=== PATIENT | male | born 1950 | race Caucasian/White ===

== ENCOUNTER 2024-03-06 22:03 | Inpatient (IN) | payer MEDICARE, SELFPAY ==
[2024-03-06] VITALS (9 sets, daily range): BP systolic 105–136; BP diastolic 33–97; PULSE 61–112; RESP 18–34; TEMP 34.4–35.4; O2SAT 71–80; BMI 14.1; BMI 21.2
--- NOTE | 2024-03-06 22:13 | ECG_ITS ---
APPROVED REPORT Exam: Resting ECG HR:111 bpm ECG Measurements Heart Rate 111 AXES QRSd 104 QRS 72 QT 350 T 199 QTc 416 Conclusion ATRIAL FIBRILLATION WITH RAPID VENTRICULAR RESPONSE ST DEVIATION AND MODERATE T-WAVE ABNORMALITY, CONSIDER ANTEROLATERAL ISCHEMIA [-0.1+ mV T-WAVE IN V3-V6] ST DEVIATION AND MODERATE T-WAVE ABNORMALITY, CONSIDER INFERIOR ISCHEMIA [-0.1+ mV T-WAVE IN II/aVF] No STEMI Electronically signed by : EUGENIO NEWBY, 03/07/2024 04:27:00
--- NOTE | 2024-03-06 22:15 | CT_ITS ---
PROCEDURE INFORMATION: Exam: CT Abdomen And Pelvis With Contrast Exam date and time: 03/06/2024 11:55 PM Age: 73 years old Clinical indication: Other: Cachexia; Additional info: Severe decline, cachexia, TECHNIQUE: Imaging protocol: Computed tomography of the abdomen and pelvis with contrast. Radiation optimization: All CT scans at this facility use at least one of these dose optimization techniques: automated exposure control; mA and/or kV adjustment per patient size (includes targeted exams where dose is matched to clinical indication); or iterative reconstruction. Contrast material: ISOVUE; Contrast volume: 75 ml; Contrast route: IV; COMPARISON: CT CHEST W CON 03/06/2024 11:55 PM FINDINGS: Liver: Normal. No mass. Gallbladder and biliary ducts: Distended gallbladder without gallstone or wall thickening. Pancreas: Normal. No ductal dilation. Spleen: Normal. No splenomegaly. Adrenal glands: Normal. No mass. Kidneys and ureters: Bilateral renal cysts measuring up to 8.1 cm. Nonobstructive 0.6 cm right renal calculus. Stomach and bowel: Unremarkable. No obstruction. No mucosal thickening. Appendix: Not visualized. Intraperitoneal space: Unremarkable. No free air. No significant fluid collection. Vasculature: Atherosclerotic calcification of aortoiliac arteries without aneurysm. Lymph nodes: Unremarkable. No enlarged lymph nodes. Urinary bladder: Partially decompressed urinary bladder with catheterization. Reproductive: Unremarkable as visualized. Bones/joints: Unremarkable. No acute fracture. Soft tissues: Unremarkable. IMPRESSION: 1. No acute intra abdominopelvic findings. 2. Distended gallbladder without gallstone or wall thickening possibly reflecting cholestasis. 3. Nonobstructive right renal calculus. COMMENTS: Consistent with the [employer]'s Incidental Findings Committee white paper (J Am Karey Radiol 2018): Any incidental renal lesion less than 1 cm or classified as too small to characterize, or any incidental cystic renal lesion characterized as simple-appearing, is likely benign. No follow-up imaging is recommended for these lesions per consensus recommendations based on imaging criteria.
--- NOTE | 2024-03-06 22:15 | CT_ITS ---
PROCEDURE INFORMATION: Exam: CT Head Without Contrast Exam date and time: 03/06/2024 11:53 PM Age: 73 years old Clinical indication: Altered mental status/memory loss; Additional info: AMS found down TECHNIQUE: Imaging protocol: Computed tomography of the head without contrast. Total images: 672 Radiation optimization: All CT scans at this facility use at least one of these dose optimization techniques: automated exposure control; mA and/or kV adjustment per patient size (includes targeted exams where dose is matched to clinical indication); or iterative reconstruction. COMPARISON: No relevant prior studies available. FINDINGS: Brain: No acute intracranial hemorrhage, midline shift, or mass. Moderate cortical and cerebellar atrophy. Hensley-white interface and basilar cisterns are preserved. Mild white matter heterogeneity compatible with remote small vessel ischemic changes. Cerebral ventricles: Mild ventricular prominence compatible degree of central atrophy. Paranasal sinuses: Visualized sinuses are unremarkable. No fluid levels. Mastoid air cells: Visualized mastoid air cells are well aerated. Bones: Unremarkable. No acute fracture. Soft tissues: Unremarkable. Vasculature: Mild calcifications bilateral intracranial internal carotid arteries. Other findings: Limited by motion and attenuation artifacts. IMPRESSION: 1. No acute intracranial process. 2. Chronic findings.
--- NOTE | 2024-03-06 22:15 | CT_ITS ---
PROCEDURE INFORMATION: Exam: CT Chest With Contrast; Diagnostic Exam date and time: 03/06/2024 11:55 PM Age: 73 years old Clinical indication: Shortness of breath; Additional info: Physical decline, cachexia, no R sided breath soun TECHNIQUE: Imaging protocol: Diagnostic computed tomography of the chest with contrast. Radiation optimization: All CT scans at this facility use at least one of these dose optimization techniques: automated exposure control; mA and/or kV adjustment per patient size (includes targeted exams where dose is matched to clinical indication); or iterative reconstruction. Contrast material: ISOVUE; Contrast volume: 75 ml; Contrast route: IV; COMPARISON: CT CHEST W CON 03/06/2024 11:55 PM FINDINGS: Lungs: Extensive patchy opacities in right upper and lower lobes with dense consolidation of right posterobasilar lobe. Patchy nodular opacities in left lower lobe. 1.9 x 2.1 cm right upper lobe partially cavitary lesion with spiculated border (series 5, image 36). Incidental benign left upper lobar calcified granuloma. Underlying centrilobular emphysematous and bronchiectatic changes. Pleural spaces: Unremarkable. No pneumothorax. No pleural effusion. Heart: Unremarkable. No cardiomegaly. No pericardial effusion. Lymph nodes: Unremarkable. No enlarged lymph nodes. Vasculature: Atherosclerotic calcification of thoracic aorta without aneurysm or dissection. Bones/joints: Unremarkable. No acute fracture. Soft tissues: Unremarkable. IMPRESSION: 1. Likely infectious/inflammatory infiltration and consolidation of both lungs most pronounced in right lower lobe. Recommend follow-up to document resolution on treatment. 2. Poorly defined partially cavitary lesion in right upper lobe with spiculated border. Although likely infectious/inflammatory as well, cannot exclude cavitary mass. Recommend follow-up. COMMENTS: The presence of pulmonary emphysema on CT is an independent risk factor for lung cancer. In the absence of a history or active diagnosis of lung cancer, it is recommended that this patient with emphysema be evaluated for enrollment in a low dose CT lung cancer screening program.
--- NOTE | 2024-03-06 22:16 | XR_ITS ---
PROCEDURE INFORMATION: Exam: XR Chest Exam date and time: 03/06/2024 10:15 PM Age: 73 years old Clinical indication: Other: Sepsis TECHNIQUE: Imaging protocol: Radiologic exam of the chest. Views: 1 view. Total images: 2 COMPARISON: No relevant prior studies available. FINDINGS: Tubes, catheters and devices: EKG leads and extrinsic cardiac pacer pads. Lungs: Considerable airspace opacification throughout the right lung. Volume loss in the right hemithorax. The left lung appears clear. No pulmonary vascular congestion. Pleural spaces: Small right pleural effusion. No pneumothorax. Heart/Mediastinum: Right paratracheal fullness. Bones/joints: Unremarkable. Other findings: Rotation to the right limits evaluation. IMPRESSION: 1. Considerable airspace opacification throughout the right hemithorax likely reflecting pneumonia. 2. Small right pleural effusion. 3. Right paratracheal opacity concerning for mediastinal adenopathy.
[2024-03-06 22:23] LABS: VBG Base Excess -9.6 mmol/L (-2.4-2.3); VBG HCO3 18.9 mmol/L (23-30); VBG Oxygen Saturation 41.8 % (50-70); VBG PCO2 52.7 mmol/L (35-51); VBG PO2 30.5 mmol/L (28-40); VBG Total CO2 20.5 mmol/L (23-27)
[2024-03-06 22:27] LABS: Microscopic, Urine URINE MICROSCOPIC (MICROSCOPIC)
[2024-03-06 22:30] LABS: Appearance,Urine CLEAR (Clear); Blood, Urine Negative (Negative); Glucose,Urine (UA) Negative (Negative); Ketones,Urine Negative (Negative); Leukocyte Esterase,Urine Negative (Negative); Nitrate,Urine Negative (Negative); Protein,Urine 1+ (Negative); Specific Gravity, Urine >= 1.030 (1.005-1.030); Urobilinogen,Urine 0.2 EU/dl (0.2)
--- NOTE | 2024-03-06 22:32 | [facility].EDGENADL ---
Discharge Plan Disposition Patient Disposition: Admitted Clinical Impressions Clinical Impression: Acute hypoxemic respiratory failure, JULIA (acute kidney injury), Malnutrition, Declining functional status, Sepsis, Pneumonia, Cavitating mass of lung, Acidosis, metabolic, with respiratory acidosis Discharge ED Provider: Mehul Lutz General Adult HPI <Mehul Lutz MD - Last Filed: 03/06/24 23:10> General Chief complaint: Shortness of Breath/Dyspnea Stated complaint: Refused care for past several months Time Seen by Provider: 03/06/24 22:15 History of Present Illness HPI narrative: Please note that above description of symptoms, in this electronic medical record under categorization of recalled from ER triage doctor by RN are reflective of an initial nursing assessment, however, is not reflective of my full history and physical exam that was personally taken and clarified. Consequentially, this preceding description of symptoms, which may include the patient's categorized chief complaint in the EMR, do not reflect my personal clinical impression, and the ultimate description of history of present illness and patient stated complaints should be deferred to this section of the note. Unless stated otherwise or congruent with this section of the note, additional signs, symptoms, or incongruence should be interpreted as inaccurate with my clinical impression. Related Data Allergies Allergy/AdvReac Type Severity Reaction Status Date / Time No Known Allergies Allergy Verified 03/06/24 22:55 PFSH <Mehul Lutz MD - Last Filed: 03/06/24 23:10> PFS Disclaimer: The information contained in this section may have been updated after the patient was seen, as this information can be updated by other users. Social History (Updated 03/06/24 @ 23:10 by Mehul Lutz MD) Smoking Status: Current every day smoker alcohol intake: current current occupational status: employed Travel in the last 8 weeks: None <Mehul Lutz MD - Last Filed: 03/06/24 23:10> ROS Obtained: Yes All systems reviewed & no additional complaints except as documented Physical Exam <Mehul Lutz MD - Last Filed: 03/06/24 23:10> General General appearance: alert, cachectic and other (Laying with head back, eyes open, mouth wide open) Head Head exam: atraumatic and normocephalic Eye Eye exam: Present PERRL, EOMI and other (Eyes are sunken) ENT ENT exam: Present mucous membranes dry Neck Neck exam: Present normal inspection, full ROM and trachea midline Chest Chest inspection: Present symmetric chest wall rise Respiratory Respiratory exam: Present wheezes (Left-sided wheezes) and other (Nearly no audible breath sounds on the right. Dull to percussion); Absent respiratory distress, stridor, accessory muscle use or prolonged expiratory phase Cardiovascular Cardiovascular exam: Present normal rhythm, tachycardia and other (Pulses equal symmetric in upper and lower extremities) Abdominal Exam Abdominal exam: Present soft and other (Scaphoid abdomen, cachectic); Absent distention, tenderness or pulsatile mass Extremities Exam Extremities exam: Absent edema Neurological Exam Neurological exam: Present alert and oriented X3 Skin Skin exam: Present warm, dry and cyanosis (Acral cyanosis); Absent diaphoresis or erythema Medical Decision Making <Mehul Lutz MD - Last Filed: 03/06/24 23:10> Medical Records Medical records reviewed: Yes I reviewed the patient's medical records. Screening: Per USPSTF and CDC recommendations, given the prevalence of disease in our region, it is our hospital?s policy to screen for HIV and viral Hepatitis for all patients aged 18 and over and those with ongoing risk factors. Tarik Inquiry Pt receiving controlled substance: No Tarik was queried for this patient: No Vital Signs: 03/06/24 22:14 03/06/24 22:17 03/06/24 22:23 Temperature 93.9 F L 93.9 F L Temperature Source Core Pulse Rate Pulse Rate [Radial] 112 H Respiratory Rate 33 H 34 H 32 H Blood Pressure 105/80 L 105/62 L Blood Pressure [Right Arm] 105/62 L Blood Pressure Mean Blood Pressure Mean [Right Arm] 76 02 Sat by Pulse Oximetry 80 L Oxygen Delivery Method Non-Rebreather 03/06/24 22:31 03/06/24 22:45 03/06/24 23:01 Temperature 95.7 F L Temperature Source Pulse Rate Pulse Rate [Radial] Respiratory Rate 29 H Blood Pressure 118/97 H 119/62 114/54 L Blood Pressure [Right Arm] Blood Pressure Mean 81 74 Blood Pressure Mean [Right Arm] 02 Sat by Pulse Oximetry Oxygen Delivery Method 03/06/24 23:15 03/06/24 23:54 03/06/24 23:54 Temperature 95.7 F L Temperature Source Pulse Rate 61 106 H Pulse Rate [Radial] Respiratory Rate 27 H Blood Pressure 136/33 L Blood Pressure [Right Arm] Blood Pressure Mean Blood Pressure Mean [Right Arm] 02 Sat by Pulse Oximetry 71 L Oxygen Delivery Method BiPAP 03/06/24 23:54 03/07/24 00:15 03/07/24 00:30 Temperature 95.7 F L 95.7 F L Temperature Source Pulse Rate 103 H 48 L 99 H Pulse Rate [Radial] Respiratory Rate 31 H 25 H Blood Pressure 110/60 112/46 L Blood Pressure [Right Arm] Blood Pressure Mean Blood Pressure Mean [Right Arm] 02 Sat by Pulse Oximetry 99 90 L Oxygen Delivery Method BiPAP 03/07/24 00:45 03/07/24 01:00 Temperature Temperature Source Pulse Rate Pulse Rate [Radial] Respiratory Rate Blood Pressure 104/68 L 107/74 L Blood Pressure [Right Arm] Blood Pressure Mean 74 80 Blood Pressure Mean [Right Arm] 02 Sat by Pulse Oximetry Oxygen Delivery Method Lab Data Lab Results 03/06/24 22:10: WBC 13.8 H, RBC 4.12 L, Hgb 12.0 L, Hct 38.4 L, MCV 93.3, MCH 29.1, MCHC 31.2 L, RDW 14.1, Plt Count 233, MPV 8.5, Neut % (Auto) 91.7 H, Lymph % (Auto) 3.0 L, [place] % (Auto) 4.2, Eos % (Auto) 0.6, Baso % (Auto) 0.6, Neut # (Auto) 12.7 H, Lymph # (Auto) 0.4 L, [place] # (Auto) 0.6, Eos # (Auto) 0.1, Baso # (Auto) 0.1, Total Counted 100, Neutrophils % (Manual) 85 H, Lymphocytes % (Manual) 10, Monocytes % (Manual) 5, Differential Comment , Platelet Estimate Normal, Giant Platelets 1+, RBC Morphology Not Reportable, Poikilocytosis 1+, ESR 55 H, PT 13.5 H, INR 1.23 H, APTT 33.2 H, Sodium 139, Potassium 4.7, Chloride 104, Carbon Dioxide 15 L, Anion Gap 24.7 H, BUN 65 H, Creatinine 3.30 H, Estimated GFR 19 L*, Est GFR ( Amer) 22 L, Glucose 178 H, Calcium 9.7, Phosphorus 9.0 H, Magnesium 2.7 H, Total Bilirubin 0.8, AST 26, ALT 14, Alkaline Phosphatase 84, Troponin I 2.27 H, C-Reactive Protein 380.3 H, NT-Pro-B Natriuret Pep [id number] H, Total Protein 7.6, Albumin 3.6, Globulin 4.0 H, Albumin/Globulin Ratio 0.9 L 03/06/24 22:15: Urine Color Dark yellow, Urine Appearance Clear, Urine pH 5.0, Ur Specific [place] >= 1.030, Urine Protein 1+ A, Urine Glucose (UA) Negative, Urine Ketones Negative, Urine Blood Negative, Urine Nitrate Negative, Urine Bilirubin 2+ A, Urine Urobilinogen 0.2, Ur Leukocyte Esterase Negative, Urine RBC None, Urine WBC 5-10, Ur Squamous Epith Cells None, Urine Bacteria 1+ 03/06/24 22:45: Lactate 3.7 H 03/06/24 23:07: VBG pH 7.17 L, VBG pCO2 52.7 H, VBG pO2 30.5, VBG HCO3 18.9 L, VBG Total CO2 20.5 L, VBG O2 Saturation 41.8 L, VBG Base Excess -9.6 L, VBG Lactic Acid 5.3 H 03/06/24 22:10 03/06/24 22:10 Orders (Tests/Meds): ED MEDICATIONS Generic Name Dose Route Start Last Admin Trade Name Freq PRN Reason Stop Dose Admin Miscellaneous 1 each 03/06/24 22:15 03/06/24 23:09 Vancomycin Consult Request NOTAPPLIC 04/05/24 22:14 Not Given CONSULT PHARMACY [facility] Sodium Chloride 10 ml 03/07/24 00:05 03/07/24 00:05 Sodium Chloride 0.9% 10ml Syr (Rad Only) IV 04/06/24 00:04 10 ml NEEDED PRN Administration Maintain IV Site Discontinued Medications Generic Name Dose Route Start Last Admin Trade Name Freq PRN Reason Stop Dose Admin Albuterol/Ipratropium 9 ml 03/06/24 22:20 03/06/24 23:09 Ipratropium/Albuterol 3 Ml Neb IH 03/06/24 22:21 9 ml ONCE ONE Administration Lactated Ringer's 999 mls @ 999 mls/hr 03/06/24 22:12 03/06/24 22:59 Lactated Ringer's 1000 Ml Bag IV 03/06/24 23:11 999 mls/hr .Q1H ONE Administration Protocol Ampicillin Sodium/Sulbactam 100 mls @ 200 mls/hr 03/06/24 22:15 03/06/24 23:01 Sodium 3 gm/ Sodium Chloride IV 03/06/24 22:16 200 mls/hr ONCE ONE Administration Sodium Chloride 1,000 mls @ 999 mls/hr 03/06/24 22:15 03/06/24 22:57 Sod Chlor 0.9% 1000ml Bag IV 03/06/24 23:15 999 mls/hr .Q1H1M ONE Administration Vancomycin HCl 1,000 mg/ 250 mls @ 125 mls/hr 03/06/24 23:15 03/07/24 00:07 Sodium Chloride IV 03/07/24 01:14 125 mls/hr ONCE ONE Administration Sodium Chloride 1,980 mls @ 990 mls/hr 03/06/24 23:03 03/07/24 00:10 Sod Chlor 0.9% 1000ml Bag 30 ml/kg infuse over 2 hr (1980 ml) 03/07/24 01:02 990 mls/hr IV Administration .Q2H ONE Iopamidol 75 ml 03/07/24 00:05 03/07/24 00:06 Iopamidol-370 (76%);100ml Bottle IV 03/07/24 00:06 75 ml ONCE ONE Administration Methylprednisolone Sodium Succinate 125 mg 03/06/24 22:20 03/06/24 23:01 Methylprednisolone Sod Succ 125mg Vial IV 03/06/24 22:21 125 mg ONCE ONE Administration ORDERS Category Date Time Status CT abdomen pelvis w con Stat Cat Scan 03/06/24 22:[address] chest w con Stat Cat Scan 03/06/24 22:[address] head/brain wo con Stat Cat Scan 03/06/24 22:15 Completed Chest XR -- portable [XR chest portable] Stat Exams 03/06/24 22:16 Completed Activated Partial Thrombo Time Stat Lab 03/06/24 22:10 Completed C-Reactive Protein Stat Lab 03/06/24 22:10 Completed Complete Blood Count Auto Diff Stat Lab 03/06/24 22:10 Completed Comprehensive Metabolic Panel Stat Lab 03/06/24 22:10 Completed Erythrocyte Sedimentation Rate Stat Lab 03/06/24 22:10 Completed Lactic Acid Routine Lab 03/06/24 22:45 Completed Magnesium Stat Lab 03/06/24 22:10 Completed NT Pro Brain Natriuretic Pep. Stat Lab 03/06/24 22:10 Completed Peripheral Smear Review Stat Lab 03/06/24 23:54 Ordered Phosphorous Stat Lab 03/06/24 22:10 Completed Prothrombin Time INR Stat Lab 03/06/24 22:10 Completed Trop I [Troponin I] Stat Lab 03/06/24 22:10 Completed Troponin I Q3H Lab 03/07/24 01:30 Ordered Troponin I Q3H Lab 03/07/24 04:30 Ordered Urinalysis and Microscopic Stat Lab 03/06/24 22:15 Completed Blood Culture Stat Micro 03/06/24 22:45 Received Urine Culture Stat Micro 03/06/24 22:15 Received VBG [Venous Blood Gas] Stat RT 03/06/24 23:07 Completed Medical Decision Narrative: This is an incredibly ill-appearing 73-year-old male presenting with altered mental status. Per EMS and family at bedside, patient has had severe decline over the past few months, especially since July 2023. Has had over 100 pound weight loss since that time. Lives in deplorable conditions. Smokes about 2 packs a day, not on home oxygen. Family checked on patient today, 03/06, states that he looked incredibly ill and called EMS. On EMS arrival, patient refusing transport, unable to transport him against as well. Family essentially waited around until patient became unresponsive, then called EMS again and had him brought to the emergency department. Reportedly when EMS arrived, patient cyanotic, hypoxemic, unresponsive. Glucose in the mid 100s. Placed oxygen on him, started IV fluids. Tachycardic to 150, hypoxemic to 83%. Brought him to the emergency department. History obtained with patient, EMS, family. On arrival, patient alert and oriented, but looks incredibly acutely on chronically ill. Has no complaints on full review of systems. Eyes are open, sunken. Patient incredibly cachectic. Difficult to obtain breath sounds due to lack of subcutaneous tissue and ribs impeding auscultation. Patient has diffuse wheezes on the left as able to be heard, nearly no breath sounds on the right. Cardiac exam tachycardic without murmurs gallops or rubs. Patient has scaphoid abdomen, nontender, no overlying skin changes and no obvious hernia. Patient cold to the touch, acral cyanosis, but he is answering questions and following commands appropriately. Unable to obtain oxygen saturation due to peripheral vasoconstriction, the patient mentating. Hypothermic 93 ?F. Differential includes end-stage COPD with cachexia, malignancy, mucous plugging, pneumothorax, ACS, [place], protein calorie malnutrition, metabolic abnormality, endocrinologic abnormality, vitamin or mineral deficiency, severe dehydration, JULIA, acute renal failure, sepsis, among others. Shortly after initial evaluation, CODE STATUS discussed with patient. Patient wishes to receive chest compressions if his heart were to stop, but declines intubation. It was explained that these are largely compatible, and patient nods in understanding, but wishes to maintain this status. Patient placed on continuous cardiac monitoring and continuous pulse ox with initial blood pressure 105/80, heart rate 112, saturation 80% on nonrebreather breathing 33 times a minute. [Independent interpretation of EKG shows] sinus tachycardia 107 bpm. Intermittent PACs. T wave inversions in V2 through V6 without reciprocal elevations. MI 139, QRS 103, QTc 425. Patient was given empiric sepsis fluid bolus and Unasyn/vancomycin for symptomatic management[ and correction of underlying abnormalities]. Workup independently interpreted and significant for leukocytosis 13.8 with neutrophilia. Patient's chemistry with JULIA creatinine 3.3, BUN 65 with GFR 19. Unknown baseline. Magnesium 2.7, phosphorus 9.0. Troponin elevated 2.2 likely secondary to global ischemia given nonischemic EKG, CRP elevated 380. On independent interpretation of imaging, patient has near whiteout of his right lung with mediastinal adenopathy and fullness. See radiology read for full review of final results. Patient's VBG with pH 7.1, CO2 elevated in the 50s, oxygen low in the 30s. Lactate over 5. Patient placed on BiPAP after conversation and DuoNebs and Solu-Medrol given. Prior to CT scans, care handed off to oncoming physician. Patient will need admitted, would be appropriate candidate for comfort care as well. Toggle Press Operator disclaimer Much of this encounter note is an electronic synthetic plasterer spoken language to printed text. Electronic synthetic plasterer of the spoken language may permit errors. Although I have reviewed the note, some errors may still exist. <Kenya Delaney MD - Last Filed: 03/07/24 01:31> Vital Signs: 11/09/24 22:14 03/06/24 22:17 03/06/24 22:23 Temperature 93.9 F L 93.9 F L Temperature Source Core Pulse Rate Pulse Rate [Radial] 112 H Respiratory Rate 33 H 34 H 32 H Blood Pressure 105/80 L 105/62 L Blood Pressure [Right Arm] 105/62 L Blood Pressure Mean Blood Pressure Mean [Right Arm] 76 02 Sat by Pulse Oximetry 80 L Oxygen Delivery Method Non-Rebreather 03/06/24 22:31 03/06/24 22:45 03/06/24 23:01 Temperature 95.7 F L Temperature Source Pulse Rate Pulse Rate [Radial] Respiratory Rate 29 H Blood Pressure 118/97 H 119/62 114/54 L Blood Pressure [Right Arm] Blood Pressure Mean 81 74 Blood Pressure Mean [Right Arm] 02 Sat by Pulse Oximetry Oxygen Delivery Method 03/06/24 23:15 03/06/24 23:54 03/06/24 23:54 Temperature 95.7 F L Temperature Source Pulse Rate 61 106 H Pulse Rate [Radial] Respiratory Rate 27 H Blood Pressure 136/33 L Blood Pressure [Right Arm] Blood Pressure Mean Blood Pressure Mean [Right Arm] 02 Sat by Pulse Oximetry 71 L Oxygen Delivery Method BiPAP 03/06/24 23:54 03/07/24 00:15 03/07/24 00:30 Temperature 95.7 F L 95.7 F L Temperature Source Pulse Rate 103 H 48 L 99 H Pulse Rate [Radial] Respiratory Rate 31 H 25 H Blood Pressure 110/60 112/46 L Blood Pressure [Right Arm] Blood Pressure Mean Blood Pressure Mean [Right Arm] 02 Sat by Pulse Oximetry 99 90 L Oxygen Delivery Method BiPAP 03/07/24 00:45 03/07/24 01:00 Temperature Temperature Source Pulse Rate Pulse Rate [Radial] Respiratory Rate Blood Pressure 104/68 L 107/74 L Blood Pressure [Right Arm] Blood Pressure Mean 74 80 Blood Pressure Mean [Right Arm] 02 Sat by Pulse Oximetry Oxygen Delivery Method Lab Data Lab Results 03/06/24 22:10: WBC 13.8 H, RBC 4.12 L, Hgb 12.0 L, Hct 38.4 L, MCV 93.3, MCH 29.1, MCHC 31.2 L, RDW 14.1, Plt Count 233, MPV 8.5, Neut % (Auto) 91.7 H, Lymph % (Auto) 3.0 L, [place] % (Auto) 4.2, Eos % (Auto) 0.6, Baso % (Auto) 0.6, Neut # (Auto) 12.7 H, Lymph # (Auto) 0.4 L, [place] # (Auto) 0.6, Eos # (Auto) 0.1, Baso # (Auto) 0.1, Total Counted 100, Neutrophils % (Manual) 85 H, Lymphocytes % (Manual) 10, Monocytes % (Manual) 5, Differential Comment , Platelet Estimate Normal, Giant Platelets 1+, RBC Morphology Not Reportable, Poikilocytosis 1+, ESR 55 H, PT 13.5 H, INR 1.23 H, APTT 33.2 H, Sodium 139, Potassium 4.7, Chloride 104, Carbon Dioxide 15 L, Anion Gap 24.7 H, BUN 65 H, Creatinine 3.30 H, Estimated GFR 19 L*, Est GFR ( Amer) 22 L, Glucose 178 H, Calcium 9.7, Phosphorus 9.0 H, Magnesium 2.7 H, Total Bilirubin 0.8, AST 26, ALT 14, Alkaline Phosphatase 84, Troponin I 2.27 H, C-Reactive Protein 380.3 H, NT-Pro-B Natriuret Pep [id number] H, Total Protein 7.6, Albumin 3.6, Globulin 4.0 H, Albumin/Globulin Ratio 0.9 L 03/06/24 22:15: Urine Color Dark yellow, Urine Appearance Clear, Urine pH 5.0, Ur Specific [place] >= 1.030, Urine Protein 1+ A, Urine Glucose (UA) Negative, Urine Ketones Negative, Urine Blood Negative, Urine Nitrate Negative, Urine Bilirubin 2+ A, Urine Urobilinogen 0.2, Ur Leukocyte Esterase Negative, Urine RBC None, Urine WBC 5-10, Ur Squamous Epith Cells None, Urine Bacteria 1+ 03/06/24 22:45: Lactate 3.7 H 03/06/24 23:07: VBG pH 7.17 L, VBG pCO2 52.7 H, VBG pO2 30.5, VBG HCO3 18.9 L, VBG Total CO2 20.5 L, VBG O2 Saturation 41.8 L, VBG Base Excess -9.6 L, VBG Lactic Acid 5.3 H Orders (Tests/Meds): ED MEDICATIONS Generic Name Dose Route Start Last Admin Trade Name Dinesh PRN Reason Stop Dose Admin Miscellaneous 1 each 03/06/24 22:15 03/06/24 23:09 Vancomycin Consult Request NOTAPPLIC 04/05/24 22:14 Not Given CONSULT PH[facility]Y [facility] Sodium Chloride 10 ml 03/07/24 00:05 03/07/24 00:05 Sodium Chloride 0.9% 10ml Syr (Rad Only) IV 04/06/24 00:04 10 ml NEEDED PRN Administration Maintain IV Site Discontinued Medications Generic Name Dose Route Start Last Admin Trade Name Dinesh PRN Reason Stop Dose Admin Albuterol/Ipratropium 9 ml 03/06/24 22:20 03/06/24 23:09 Ipratropium/Albuterol 3 Ml Neb IH 03/06/24 22:21 9 ml ONCE ONE Administration Lactated Ringer's 999 mls @ 999 mls/hr 03/06/24 22:12 03/06/24 22:59 Lactated Ringer's 1000 Ml Bag IV 03/06/24 23:11 999 mls/hr .Q1H ONE Administration Protocol Ampicillin Sodium/Sulbactam 100 mls @ 200 mls/hr 03/06/24 22:15 03/06/24 23:01 Sodium 3 gm/ Sodium Chloride IV 03/06/24 22:16 200 mls/hr ONCE ONE Administration Sodium Chloride 1,000 mls @ 999 mls/hr 03/06/24 22:15 03/06/24 22:57 Sod Chlor 0.9% 1000ml Bag IV 03/06/24 23:15 999 mls/hr .Q1H1M ONE Administration Vancomycin HCl 1,000 mg/ 250 mls @ 125 mls/hr 03/06/24 23:15 03/07/24 00:07 Sodium Chloride IV 03/07/24 01:14 125 mls/hr ONCE ONE Administration Sodium Chloride 1,980 mls @ 990 mls/hr 03/06/24 23:03 03/07/24 00:10 Sod Chlor 0.9% 1000ml Bag 30 ml/kg infuse over 2 hr (1980 ml) 03/07/24 01:02 990 mls/hr IV Administration .Q2H ONE Iopamidol 75 ml 03/07/24 00:05 03/07/24 00:06 Iopamidol-370 (76%);100ml Bottle IV 03/07/24 00:06 75 ml ONCE ONE Administration Methylprednisolone Sodium Succinate 125 mg 03/06/24 22:20 03/06/24 23:01 Methylprednisolone Sod Succ 125mg Vial IV 03/06/24 22:21 125 mg ONCE ONE Administration ORDERS Category Date Time Status CT abdomen pelvis w con Stat Cat Scan 03/06/24 22:[address] chest w con Stat Cat Scan 03/06/24 22:[address] head/brain wo con Stat Cat Scan 03/06/24 22:15 Completed Chest XR -- portable [XR chest portable] Stat Exams 03/06/24 22:16 Completed Activated Partial Thrombo Time Stat Lab 03/06/24 22:10 Completed C-Reactive Protein Stat Lab 03/06/24 22:10 Completed Complete Blood Count Auto Diff Stat Lab 03/06/24 22:10 Completed Comprehensive Metabolic Panel Stat Lab 03/06/24 22:10 Completed Erythrocyte Sedimentation Rate Stat Lab 03/06/24 22:10 Completed Lactic Acid Routine Lab 03/06/24 22:45 Completed Magnesium Stat Lab 03/06/24 22:10 Completed NT Pro Brain Natriuretic Pep. Stat Lab 03/06/24 22:10 Completed Peripheral Smear Review Stat Lab 03/06/24 23:54 Ordered Phosphorous Stat Lab 03/06/24 22:10 Completed Prothrombin Time INR Stat Lab 03/06/24 22:10 Completed Trop I [Troponin I] Stat Lab 03/06/24 22:10 Completed Troponin I Q3H Lab 03/07/24 01:30 Ordered Troponin I Q3H Lab 03/07/24 04:30 Ordered Urinalysis and Microscopic Stat Lab 03/06/24 22:15 Completed Blood Culture Stat Micro 03/06/24 22:45 Received Urine Culture Stat Micro 03/06/24 22:15 Received VBG [Venous Blood Gas] Stat RT 03/06/24 23:07 Completed Tissue Perfus/Sepsis Re-Eval Sepsis Re-Evaluation Performed: Yes Date Performed: 03/07/24 Time Performed: 00:11 Medical Decision Narrative: This is an incredibly ill-appearing 73-year-old male presenting with altered mental status. Per EMS and family at bedside, patient has had severe decline over the past few months, especially since July 2023. Has had over 100 pound weight loss since that time. Lives in deplorable conditions. Smokes about 2 packs a day, not on home oxygen. Family checked on patient today, 03/06, states that he looked incredibly ill and called EMS. On EMS arrival, patient refusing transport, unable to transport him against as well. Family essentially waited around until patient became unresponsive, then called EMS again and had him brought to the emergency department. Reportedly when EMS arrived, patient cyanotic, hypoxemic, unresponsive. Glucose in the mid 100s. Placed oxygen on him, started IV fluids. Tachycardic to 150, hypoxemic to 83%. Brought him to the emergency department. History obtained with patient, EMS, family. On arrival, patient alert and oriented, but looks incredibly acutely on chronically ill. Has no complaints on full review of systems. Eyes are open, sunken. Patient incredibly cachectic. Difficult to obtain breath sounds due to lack of subcutaneous tissue and ribs impeding auscultation. Patient has diffuse wheezes on the left as able to be heard, nearly no breath sounds on the right. Cardiac exam tachycardic without murmurs gallops or rubs. Patient has scaphoid abdomen, nontender, no overlying skin changes and no obvious hernia. Patient cold to the touch, acral cyanosis, but he is answering questions and following commands appropriately. Unable to obtain oxygen saturation due to peripheral vasoconstriction, the patient mentating. Hypothermic 93 ?F. Differential includes end-stage COPD with cachexia, malignancy, mucous plugging, pneumothorax, ACS, [place], protein calorie malnutrition, metabolic abnormality, endocrinologic abnormality, vitamin or mineral deficiency, severe dehydration, JULIA, acute renal failure, sepsis, among others. Shortly after initial evaluation, CODE STATUS discussed with patient. Patient wishes to receive chest compressions if his heart were to stop, but declines intubation. It was explained that these are largely compatible, and patient nods in understanding, but wishes to maintain this status. Patient placed on continuous cardiac monitoring and continuous pulse ox with initial blood pressure 105/80, heart rate 112, saturation 80% on nonrebreather breathing 33 times a minute. [Independent interpretation of EKG shows] sinus tachycardia 107 bpm. Intermittent PACs. T wave inversions in V2 through V6 without reciprocal elevations. MI 139, QRS 103, QTc 425. Patient was given empiric sepsis fluid bolus and Unasyn/vancomycin for symptomatic management[ and correction of underlying abnormalities]. Workup independently interpreted and significant for leukocytosis 13.8 with neutrophilia. Patient's chemistry with JULIA creatinine 3.3, BUN 65 with GFR 19. Unknown baseline. Magnesium 2.7, phosphorus 9.0. Troponin elevated 2.2 likely secondary to global ischemia given nonischemic EKG, CRP elevated 380. On independent interpretation of imaging, patient has near whiteout of his right lung with mediastinal adenopathy and fullness. See radiology read for full review of final results. Patient's VBG with pH 7.1, CO2 elevated in the 50s, oxygen low in the 30s. Lactate over 5. Patient placed on BiPAP after conversation and DuoNebs and Solu-Medrol given. Prior to CT scans, care handed off to oncoming physician. Patient will need admitted, would be appropriate candidate for comfort care as well. Toggle Press Operator disclaimer Much of this encounter note is an electronic synthetic plasterer spoken language to printed text. Electronic synthetic plasterer of the spoken language may permit errors. Although I have reviewed the note, some errors may still exist. Delaney: Upon my assumption of care patient was being placed on BiPAP. He seems to be tolerating this well at this time. I reviewed labs and imaging that have been completed thus far. I do have concerns in the right hemithorax for possible malignancy as well as infection. Mediastinum appears to be shifted to the right. See radiology reads. I reviewed labs which demonstrate metabolic and respiratory acidosis. Patient has poor kidney function which has been a chronic problem according to family, I still believe that there is extremely high importance of having contrasted exams on this patient despite his low GFR. I believe the benefits of contrast outweigh the risks to his kidneys since he is profoundly ill and we have concerns for malignancy which will be better identified with contrast exam. Family understands this. Patient is receiving contrasted exams. Patient did have elevated troponin but reassuring ECG and no chest pain, believe this is likely due to kidney dysfunction and overall profound illness. CT head personally interpreted does not demonstrate obvious mass or midline shift, no intracranial bleed, CT chest concerning for both infectious and malignant findings especially in the right lung, CT abdomen pelvis with renal cysts but no other acute intra-abdominal pathology on my personal interpretation. See radiology reads for full interpretations. Patient is frustrated with the BiPAP and wants the mask off. I discussed the findings with patient and family. I asked the patient if he would want any workup for cancer including transfer to higher level of care, biopsies, labs, possibly surgery, chemo, radiation. Patient immediately said no and refused any further mass/malignancy workup or treatment. He is in his right mind, oriented, and able to make decisions for himself. He states he does not want any interventions related to malignancy workup. When I asked him if all he wanted was comfort care, he immediately said yes. He did consent to continue wearing BiPAP but because of his discomfort with that, IV Ativan was administered. He also agreed to receiving continued treatment for sepsis and infection as well as admission. Family at bedside is understandably upset but also understand that patient has expressed his wishes and are in agreement with them. I discussed this case with the hospitalist including patient's presentation, labs, imaging, patient's wishes, DNR but okay to do CPR status that patient decided on earlier, and patient was graciously accepted for admission. Critical Care <Mehul Lutz MD - Last Filed: 03/06/24 23:10> Critical Care Time Critical Care Time: Yes (respiratory, id, sepsis) Attestation: On 03/06/24, the high probability of a clinically significant, sudden or life threatening deterioration of the following system(s) required my full and direct attention, intervention and personal management. The time I documented below is in addition to time spent performing reported procedures but includes the following listed in this critical care notation. Total Time Total Critical Care Time: 60
[2024-03-06 22:33] LABS: Basophils # 0.1 K/mm3 (0-0.2); Basophils % 0.6 % (0.1-2.0); Eosinophils # 0.1 K/mm3 (0.0-0.4); Eosinophils % 0.6 % (0.1-12.0); Hematocrit 38.4 % (42.0-52.0); Lymphocytes # 0.4 K/mm3 (0.7-4.5); Mean Corpuscular HGB Conc 31.2 g/dL (31.8-35.4); Mean Corpuscular Hemoglobin 29.1 pg (27.0-31.2); Mean Corpuscular Volume 93.3 fl (80-94); Mean Platelet Volume 8.5 fl (7.4-10.4); Monocytes # 0.6 K/mm3 (0.1-1.0); Monocytes % 4.2 % (1.7-9.3); Neutrophils # 12.7 K/mm3 (1.8-7.8); Neutrophils % 91.7 % (37.0-80.0); Platelet Count 233 K/mm3 (142-424); Red Blood Count 4.12 M/mm3 (4.60-6.20); Red Cell Distribution Width 14.1 % (11.5-17.5); White Blood Count 13.8 K/mm3 (4.8-10.8)
[2024-03-06 22:34] LABS: Chloride 104 mmol/L (98-107)
[2024-03-06 22:35] LABS: Albumin Level 3.6 g/dl (3.5-5.0); Potassium 4.7 mmoL/L (3.5-5.1); Sodium 139 mmol/L (136-145)
[2024-03-06 22:36] LABS: Bilirubin,Urine 2+ (Negative); Color,Urine Dark Yellow (Yellow)
[2024-03-06 22:37] LABS: Blood Urea Nitrogen 65 mg/dl (9-20); Estimated Glomerular Filt Rate 19 ml/min (>60); GFR (African American) 22 ML/MIN (>60)
[2024-03-06 22:38] LABS: Alanine Aminotransferase 14 U/L (12-78); Albumin/Globulin Ratio 0.9 (1.1-1.8); Alkaline Phosphatase 84 U/L (38-126); Anion Gap 24.7 mEq/L (5-15); Aspartate Amino Transferase 26 U/L (17-59); Bilirubin,Total 0.8 mg/dl (0.2-1.3); Calcium 9.7 mg/dl (8.4-10.2); Carbon Dioxide 15 mmol/L (22.0-30.0); Glucose 178 mg/dl (74-100); Total Protein,Serum 7.6 g/dl (6.3-8.2)
[2024-03-06 22:41] LABS: MANUAL DIFFERENTIAL MANUAL DIFFERENTIAL (MANUAL DIFF)
[2024-03-06 22:45] LABS: Bacteria,Urine 1+ /lpf
--- NOTE | 2024-03-06 22:46 | PC.NURSE ---
Pt arrives alert and oriented Weak and having difficulty breathing. Pt cachetic ribs portruding. Skin pale cold and dry. Upon arrival Temp sensing crow placed at 2215 warm NS x 2 liters hung with pressure bags wide open to bilateral IV sites Pt placed on Bare Hugger at 2212. BI-pap placed on patient at 2250 Unable to get accurate SAo2 due to temp of patient after trying multiple locations. FSBS en route was 150 per EMS No wounds noted Resp rapid and labored. Speech clear and weak but appropriate. Pt in atrial fibrillation per continuous heart monitor. Family at bedside
[2024-03-06 22:53] LABS: Troponin I 2.27 ng/ml (0.00-0.034)
[2024-03-06 22:54] LABS: Magnesium 2.7 mg/dl (1.6-2.3)
[2024-03-06 22:55] LABS: C-Reactive Protein 380.3 mg/L (0-4)
[2024-03-06] MEDS: 0.9 % SODIUM CHLORIDE 1000ML 1,000 ML 999 ML IV (22:57)
[2024-03-06] MEDS: LACTATED RINGERS IV (22:59)
[2024-03-06] MEDS: AMPICILLIN SODIUM/SULBACTAM 3 GM in 0.9 % SODIUM CHLORIDE 100 ML IV (23:01)
[2024-03-06] MEDS: METHYLPREDNISOLONE SOD SUCC 125MG VIAL 125 MG IV (23:01)
[2024-03-06 23:03] LABS: Lactic Acid 3.7 mmol/L (0.7-2.1)
[2024-03-06] MEDS: IPRATROPIUM/ALBUTEROL 3 ML NEB 9 ML IH (23:09)
[2024-03-06 23:10] LABS: Activated Partial Thrombo Time 33.2 seconds (22.8-30.6); INR 1.23 (0.9-1.1); Prothrombin Time 13.5 seconds (10.1-12.5)
[2024-03-06 23:11] LABS: NT Pro Brain Natriuretic Pep. 174000 pg/mL (0-125)
[2024-03-06 23:14] LABS: Erythrocyte Sedimentation Rate 55 mm/hr (0-20)
[2024-03-06 23:18] LABS: Lactate Venous 5.3 mmol/L (0.4-2.0); VBG PH 7.17 mmol/L (7.31-7.41)
--- NOTE | 2024-03-06 23:22 | PC.NURSE ---
8106- notified [facility] of pts critical troponin
[2024-03-06 23:26] LABS: Lymphocytes % 10 % (10-50); Monocytes % 5 % (2-9); Neutrophils % 85 % (42-76); Total Cells Counted 100
[2024-03-06 23:51] LABS: Giant Platelets 1+
[2024-03-07] VITALS (22 sets, daily range): BP systolic 82–164; BP diastolic 46–83; PULSE 48–122; RESP 10–33; TEMP 35.4–37.3; O2SAT 90–100; BMI 19.5
[2024-03-07] MEDS: SODIUM CHLORIDE 0.9% 10ML SYR (RAD ONLY) 10 ML IV (00:05)
[2024-03-07] MEDS: IOPAMIDOL-370 (76%);100ML BOTTLE 75 ML IV (00:06)
[2024-03-07] MEDS: VANCOMYCIN HCL 1,000 MG in 0.9 % SODIUM CHLORIDE 250 ML 125 MG IV (00:07)
--- NOTE | 2024-03-07 00:07 | PC.NURSE ---
patient back from CT, nurse at bedside
[2024-03-07] MEDS: SODIUM CHLORIDE 990 ML IV (00:10)
--- NOTE | 2024-03-07 00:23 | PC.NURSE ---
2210 Upon arrival breath sounds severly diminished in right lung jarrell. Clear in left anterior lung jarrell S1 and S2 clearly auscultated. Bowel sounds hypoactive Abd soft and flat.
--- NOTE | 2024-03-07 00:26 | PC.NURSE ---
[address] scan Pt remains on Bi-Pap VSS No change in mental status Pt awake and responds appropriately to questions. Legs still mottled.
[2024-03-07 00:50] LABS: Poikilocytosis 1+
[2024-03-07 00:52] LABS: Platelet Estimate Normal
--- NOTE | 2024-03-07 01:16 | PC.NURSE ---
Pt to be admitted. weave room supervisor notified for bed assignment. MD accepted patient. Family aware of plans for admission
--- NOTE | 2024-03-07 01:25 | PC.NURSE ---
Pt pulling off bi-pap mask. Pt placed no 100%NRB mask after notifiying
[2024-03-07] MEDS: LORazepam 2MG/ML VIAL 0.5 MG IV (01:41)
--- NOTE | 2024-03-07 01:48 | PC.NURSE ---
Pt's do not intubate form signed by daughter after patient confirmed verbally he does not want intubated. Pt taken to inpatient unit via stretcher. Resp tachypnic and moderately labored. No change to previous assessment.
--- NOTE | 2024-03-07 01:50 | PC.NURSE ---
0140 Report called to inpatient unit
--- NOTE | 2024-03-07 02:02 | P.HP_ITS ---
History of Present Illness *Admission Date: 03/07/24 *Reason for visit:: Sepsis with respiratory failure and lung masses *History of present illness: This 73-year-old man, as described is living alone smoking about 2 packs a day. Family has noted that he is lost a day estimated 100 pounds since early in the year. From history family came to see him at his home he was not doing well. They encouraged him to go to the hospital EMS was called he refused to come. Patient went unconscious family then called EMS and he was brought here, in very poor condition, hypothermic and hypoxic. ER then provided bear hugger for warmth also warm IV fluids, placed him on a BiPAP and was able to get his saturations up to 94. I have spoken with the ER physician about her conversations with him. And I confer that when I was speaking with him he is alert and oriented. He knows where he is and he knows that he does not want a lot of care and he did not want to leave his house. He has expressed that he wants the BiPAP off which was done and he was placed upon a mask. He really did not want to stay in the hospital, but without being able to care for himself in no way home. And no EMS could drop him off at the house and this condition, he will be admitted to the floor. He will be a DNI, I have checked with him and made sure the family understood what that meant. Patient was also talked to by the ER physician if he wanted oncology to evaluate potentially 2 large masses in right lung and he said no. And agreement was made that we would place him upstairs and treat him for respiratory infection,, keep him comfortable try to improve his nutrition with the hopes of being able to release back to his own home in the near future . And would like to also express agreement with the ER physician that this patient is in very poor condition. Per family he had not been to medical care in the last 5 years he was told he had COPD at that time. [facility] Disclaimer: The information contained in this section may have been updated after the patient was seen, as this information can be updated by other users. Medical History (Updated 03/07/24 @ 08:19 by Uriel Aquino MD) No significant past medical history COPD (chronic obstructive pulmonary disease) Family History (Updated 03/07/24 @ 02:50 by Katerina Alexander RN) Other No significant family history Social History (Updated 03/06/24 @ 23:10 by Mehul Lutz MD) Smoking Status: Current every day smoker alcohol intake: current current occupational status: employed Travel in the last 8 weeks: None Other Medical History Have you received the Flu Vaccine for this season: No Have you received the Pneumonia Vaccine: No Review of Systems Review of Systems Review of systems:: pertinent systems reviewed and negative unless documented below Review of systems (narrative): Patient in emergency room is very fragile, pulse is now staying temperature increasing with a bear hug, low oxygen saturations on nonrebreather mask Constitutional Constitutional: Reports as per HPI, Reports anorexia and Reports weight loss Eyes Eyes: Reports as per HPI ENT Ears, Nose, Mouth, and Throat: Reports as per HPI *Cardiovascular Cardiovascular: Reports as per HPI and Reports dyspnea Comments: He denies any chest pain, *Respiratory Respiratory: Reports as per HPI, Reports chest congestion, Reports dyspnea and Reports stridor *Gastrointestinal Gastrointestinal: Reports as per HPI Comments: No abdominal pain found on palpation abdomen very flat noted for malnourished *Genitourinary Genitourinary: Reports as per HPI *Musculoskeletal Musculoskeletal: Reports muscle weakness Comments: The patient was not gotten out of bed did not really move his legs much due to his medical condition was able to move his arms without any difficulty Integumentary/Breasts Skin/Breast: Reports as per HPI *Neurologic Neurologic: Reports as per HPI Comments: No signs of any localized weakness or droop in face. Able to talk clearly Psychiatric Psychiatric: Reports as per HPI Endocrine Endocrine: Reports as per HPI Hematologic/Lymphatic Hematologic/Lymphatic: Reports as per HPI Allergic/Immunologic Allergic/Immunologic: Reports as per HPI Meds Home Medications and Allergies Home Medications ?Medication ?Instructions ?Recorded ?Confirmed ?Type No Known Home Medications 03/07/24 03/07/24 History New Prescriptions to Start Prescriptions: Allergies Allergy/AdvReac Type Severity Reaction Status Date / Time No Known Allergies Allergy Verified 03/06/24 22:55 Exam Data for Last 24 hours Vital signs and Labs for Last 24 Hours: Temp Pulse Resp BP Pulse Ox O2 Del Method O2 Flow Rate 96.4 F L 98 H 32 H 112/60 90 L Non-Rebreather 15 03/07/24 01:50 03/07/24 01:50 03/07/24 01:50 03/07/24 01:50 03/07/24 00:30 03/07/24 01:50 03/07/24 01:50 FiO2 100 03/06/24 23:54 Laboratory Results - last 24 hr 03/06/24 22:10: WBC 13.8 H, RBC 4.12 L, Hgb 12.0 L, Hct 38.4 L, MCV 93.3, MCH 29.1, MCHC 31.2 L, RDW 14.1, Plt Count 233, MPV 8.5, Neut % (Auto) 91.7 H, Lymph % (Auto) 3.0 L, [place] % (Auto) 4.2, Eos % (Auto) 0.6, Baso % (Auto) 0.6, Neut # (Auto) 12.7 H, Lymph # (Auto) 0.4 L, [place] # (Auto) 0.6, Eos # (Auto) 0.1, Baso # (Auto) 0.1, Total Counted 100, Neutrophils % (Manual) 85 H, Lymphocytes % (Manual) 10, Monocytes % (Manual) 5, Differential Comment , Platelet Estimate Normal, Giant Platelets 1+, RBC Morphology Not Reportable, Poikilocytosis 1+, ESR 55 H, PT 13.5 H, INR 1.23 H, APTT 33.2 H, Sodium 139, Potassium 4.7, Chloride 104, Carbon Dioxide 15 L, Anion Gap 24.7 H, BUN 65 H, Creatinine 3.30 H , Estimated GFR 19 L*, Est GFR ( Amer) 22 L, Glucose 178 H, Calcium 9.7, Phosphorus 9.0 H, Magnesium 2.7 H, Total Bilirubin 0.8, AST 26, ALT 14, Alkaline Phosphatase 84, Troponin I 2.27 H, C-Reactive Protein 380.3 H, NT-Pro-B Natriuret Pep 575170 H, Total Protein 7.6, Albumin 3.6, Globulin 4.0 H, Albumin/Globulin Ratio 0.9 L 03/06/24 22:15: Urine Color Dark yellow, Urine Appearance Clear, Urine pH 5.0, Ur Specific [place] >= 1.030, Urine Protein 1+ A, Urine Glucose (UA) Negative, Urine Ketones Negative, Urine Blood Negative, Urine Nitrate Negative, Urine Bilirubin 2+ A, Urine Urobilinogen 0.2, Ur Leukocyte Esterase Negative, Urine RBC None, Urine WBC 5-10, Ur Squamous Epith Cells None, Urine Bacteria 1+ 03/06/24 22:45: Lactate 3.7 H 03/06/24 23:07: VBG pH 7.17 L, VBG pCO2 52.7 H, VBG pO2 30.5, VBG HCO3 18.9 L, VBG Total CO2 20.5 L, VBG O2 Saturation 41.8 L, VBG Base Excess -9.6 L, VBG Lactic Acid 5.3 H I & O for Last 24 hours: Intake & Output 03/04/24 03/05/24 03/06/24 03/07/24 23:59 23:59 23:59 23:59 Weight 61.292 kg Radiology Reports for the Last 24 Hours: Reviewed CT scan of the chest noting a significant infiltrate throughout the left lung with probable 2 areas of mass Constitutional Constitutional: severe distress and cooperative Comments: Patient went in the emergency room with me talking to him on BiPAP oxygen saturations high enough. That he made it clear to me that he was aware of what was going on he did not want to be. He wanted the BiPAP mask off and not and I have not not placed back on him. This was done, patient was given medication to help keep him calm he has been brought to the floor he is sleeping comfortably in the room right now family at bedside *Routine HEENT Exam Head: Present normocephalic and atraumatic Eye: Present EOMI and PERRL ENT: Present mucous membranes dry *Routine Neck Exam Neck: Present supple Routine Chest/Breast/Axilla Exam Comments: No chest wall injury or pain was found *Routine Respiratory Exam Respiratory: Present decreased breath sounds, respiratory distress, diminished air movement and able to speak in complete sentences Comments: Patient was able to speak in complete sentences, but they would be short. His lungs listened on the left lungs fairly clear slightly diminished. Right lung you can help rales and rhonchi in several areas with significantly decreased lung sounds both upper and lower lobe *Routine Cardiovascular Exam Cardiovascular: Present tachycardia Comments: Patient's EKG shows atrial fibs, no excessive murmurs are heard, no JVD seen *Routine Abdominal Exam Abdominal: Present soft Comments: Quiet bowel sounds abdomen is flat a very emaciated, well below normal body weight *Routine Rectal Exam Rectal:: deferred *Routine Genitalia Exam Genitalia:: deferred *Routine Extremities Exam Extremities: Present pulses intact Comments: At times both hands and feet are bluish in color, with treatment we been able to get them to pink up some also with warming blanket Routine Back/Spine/Pelvis Exam Comments: Patient showed no sign of pain while being moved from bed to bed but we did not stand him, and he did not sit without great assistance in the ER *Routine Skin Exam Skin: Present intact and dry Comments: Very poor turgor to the skin at time bluish in color, and was cool to touch and Haley hugger has been added *Routine Neurological Exam Neurological: Present alert, oriented X3, CN II-XII intact, vision grossly intact and hearing grossly intact Comments: With patient on BiPAP and with having the warming blanket given patient was awake alert and oriented to. time place and person, . He did make it clear he did not want that BiPAP on and he was not planning on staying in the hospital. With his physical condition he could not be released back to home so has been admitted to the second floor Routine Psychiatric Exam Psychiatric: Present cooperative Comments: Patient is cooperative , he does make his needs known, he is aware of where he is and wants going on and who is, so his request are being followed and he does not want to be intubated he does not want the BiPAP mask. He is agreeable to being treated for potential respiratory infection does not want any kind of oncology workup. Additional findings Additional findings: I have had family in the room the son and the daughter , had a good conversation as to what his labs including his kidney functions are, also they are aware of the findings of the CT scan. And at present were happy with how their father is doing since he is comfortable sleeping and only has an oxygen mask on. They are very aware of how fragile he is. I have let them know that he probably will not improve from this, and that he may pass away within the next couple of days. Family is accepting of this and they understand all of the reasons for it. Clear teaching was done with them and I think they feel that their father is getting, very good care and that we are concerned about him. Assessment and Plan *Assessment and plan (1) Septic shock: Status: Acute Category: Medical Code(s): A41.9 - Sepsis, unspecified organism; R65.21 - Severe sepsis with septic shock (2) Acute hypoxemic respiratory failure: Status: Acute Category: Medical Code(s): J96.01 - Acute respiratory failure with hypoxia (3) Pneumonia: Status: Acute Category: Medical Code(s): J18.9 - Pneumonia, unspecified organism (4) NSTEMI (non-ST elevated myocardial infarction): Status: Acute Category: Medical Code(s): I21.4 - Non-ST elevation (NSTEMI) myocardial infarction (5) JULIA (acute kidney injury): Status: Acute Category: Medical Code(s): N17.9 - Acute kidney failure, unspecified (6) Cavitating mass of lung: Status: Acute Category: Medical Code(s): J98.4 - Other disorders of lung (7) Severe protein-calorie malnutrition: Status: Acute Category: Medical Code(s): E43 - Unspecified severe protein-calorie malnutrition (8) Tobacco use disorder: Status: Acute Category: Medical Code(s): F17.200 - Nicotine dependence, unspecified, uncomplicated Plan 73-year-old male who presents with respiratory distress and septic shock along with acute renal failure. Discussed case with ER physician, request admission for ICU level care and antibiotics along with further evaluation and management given high risk of decompensation and . Medicine agreed to admit. Admitted to ICU. Patient is critically ill, prognosis poor. Problems addressed as follows: Septic shock Cavitary pneumonia Acute hypoxemic and hypercapnic respiratory failure -Initiated on BiPAP, patient intolerant. Supplemental oxygen for goal sats greater 90%. -Continue DuoNebs every 4 hours scheduled. -Continue broad-spectrum antibiotics with transition from Unasyn to Zosyn, continue vancomycin IV. Monitor for toxicity, caution with abnormal kidney function. Renally dosing medications. -Adequately resuscitated with 3 L of IV fluid. Hold on further IV fluids, if becomes hypotensive, will initiate norepinephrine -Methylprednisolone once in the ER, hold on further steroids in the setting of septic shock unless develops concern for adrenal insufficiency or persistent h ypotension -Inflammatory markers elevated with ESR 55, CRP 380. Repeat ordered for the morning along with procalcitonin. -Pulmonology consulted to evaluate the patient in the morning Lung mass, suspected cancer Severe protein calorie malnutrition -Patient is lost over 100 pounds per family since the beginning of the year. Poor appetite. -Concern for mass on chest CT with cavitation. Could be secondary to pneumonia versus cancer. -Will need serial imaging to monitor for improvement in pneumonia. -May necessitate bronc for further workup and tissue diagnosis. Pulmonology consulted as above to assist in evaluation -Quantiferon gold pending to evaluate for TB; MRSA screen pending NSTEMI CHF -Troponin elevated at 2.27, serial pending. BNP elevated at 175K, no signs of volume overload on chest imaging or exam however. Suspect secondary to stress from septic shock and ischemia. Left cardiology evaluate the patient in the morning. JULIA/acute renal failure. BUN 65, creatinine 3.3. Unsure of patient's baseline. Has metabolic acidosis as well with elevated gap and low bicarb. Repeat CBC, CMP, magnesium ordered for the morning. Nicotine patch daily for tobacco use disorder Pantoprazole 40 mg nightly for GERD/GI prophylaxis Ativan 0.5 mg IV every 4 hours as needed for severe anxiety Morphine 2 mg IV every 4 hours for pain along with Tylenol 650 mg every 4 hours as needed for pain Unclear CODE STATUS, patient states do not and amadou however is confused and altered. At this time we will leave patient full code pending improve mentation or family/POA preference Lovenox 30 mg subcu daily N.p.o. pending improvement in mentation Lovan ox 30 mg subcu daily Rounded on patient after nurse practitioner. Personally examined and interviewed patient. Agree with exam findings and care plan as documented. Adjustments made to plan above
--- NOTE | 2024-03-07 02:05 | PC.NURSE ---
Patient arrived to floor via stretcher from ED at 01:53.
[2024-03-07 02:50] LABS: Reflex Lactic Add Lactic Reflex
[2024-03-07] MEDS: IPRATROPIUM/ALBUTEROL 3 ML NEB IH ×2 (03:12→06:00)
[2024-03-07 03:46] LABS: Lactic Acid Follow Up (RFLX 1) 3.9 mmol/L (0.7-2.1)
[2024-03-07 04:00] LABS: Troponin I 1.97 ng/ml (0.00-0.034)
[2024-03-07] MEDS: 0.9 % SODIUM CHLORIDE 1000ML 1,000 ML 75 ML IV (04:16)
[2024-03-07] MEDS: AMPICILLIN SODIUM/SULBACTAM 3 GM in 0.9 % SODIUM CHLORIDE 100 ML IV (04:20)
--- NOTE | 2024-03-07 05:05 | ECG_ITS ---
APPROVED REPORT Exam: Resting ECG HR:101 bpm ECG Measurements Heart Rate 101 AXES OK 140 P 91 QRSd 96 QRS 58 QT 365 T 210 QTc 423 Conclusion SINUS TACHYCARDIA WITH OCCASIONAL SUPRAVENTRICULAR PREMATURE COMPLEXES ST DEVIATION AND MODERATE T-WAVE ABNORMALITY, CONSIDER ANTEROLATERAL ISCHEMIA [-0.1+ mV T-WAVE IN V3-V6] ST DEVIATION AND MODERATE T-WAVE ABNORMALITY, CONSIDER INFERIOR ISCHEMIA [-0.1+ mV T-WAVE IN II/aVF] ABNORMAL ECG UNCONFIRMED REPORT Electronically signed by : Roman Haney MD 03/07/2024 12:50:42
[2024-03-07 05:36] LABS: Reflex Lactic (2 hrs) Add Lactic Reflex
--- NOTE | 2024-03-07 06:17 | PC.NURSE ---
Patient resting comfortably at this time. Patient is more awake / alert at this time since arriving to floor earlier. Patients family went home to rest. Patient pulled off his venti mask and refuses it further. Educated on risks and benefits of compliance with poc and treatment. Patient is a/o x 3, able to voice he is in the hospital and knows what is going on. Patient pulled his left A/C s/l out no s/s of bleeding or infection noted. Instructed patient to leave his other IV in to continue to get his fluids and IV atb therapy. Pt v/u. Reviewed poc and d/c goals with patient. Patient shook head to yes as he agrees to current poc and tx. No new questions or concerns
--- NOTE | 2024-03-07 06:34 | P.EN_ITS ---
Updated on patient's status : Patient has improved immensely he is now in sinus rhythm saturations are 100% on room air, respiratory rate is now under 30., Patient is no longer physically cold. Antibiotics and IV fluids continue to run. [place] that the patient was too unstable to do much for and that he actually may leave us before now is how sick he was when he came in. Will get with oncoming provider consider cardiac consult. Evaluate inverted T waves in all 6 of the V leads.
[2024-03-07 07:33] LABS: Basophils % 0.3 % (0.1-2.0); Eosinophils % 0.1 % (0.1-12.0); Hematocrit 34.5 % (42.0-52.0); Lymphocytes # 0.5 K/mm3 (0.7-4.5); Lymphocytes % 4.7 % (10-50); Mean Corpuscular HGB Conc 30.9 g/dL (31.8-35.4); Mean Corpuscular Volume 93.8 fl (80-94); Mean Platelet Volume 8.4 fl (7.4-10.4); Monocytes # 0.4 K/mm3 (0.1-1.0); Monocytes % 3.9 % (1.7-9.3); Neutrophils # 9.6 K/mm3 (1.8-7.8); Neutrophils % 90.9 % (37.0-80.0); Platelet Count 172 K/mm3 (142-424); Red Blood Count 3.68 M/mm3 (4.60-6.20); Red Cell Distribution Width 14.2 % (11.5-17.5); White Blood Count 10.5 K/mm3 (4.8-10.8)
[2024-03-07 07:47] LABS: Albumin Level 2.7 g/dl (3.5-5.0); Chloride 110 mmol/L (98-107); Sodium 140 mmol/L (136-145)
[2024-03-07 07:48] LABS: Potassium 4.5 mmoL/L (3.5-5.1)
[2024-03-07 07:50] LABS: Alanine Aminotransferase 12 U/L (12-78); Albumin/Globulin Ratio 0.8 (1.1-1.8); Alkaline Phosphatase 70 U/L (38-126); Anion Gap 21.5 mEq/L (5-15); Aspartate Amino Transferase 38 U/L (17-59); Bilirubin,Total 0.8 mg/dl (0.2-1.3); Blood Urea Nitrogen 59 mg/dl (9-20); Calcium 8.4 mg/dl (8.4-10.2); Carbon Dioxide 13 mmol/L (22.0-30.0); Creatinine Clearance Estimated 19 mL/min (50-200); Estimated Glomerular Filt Rate 21 ml/min (>60); GFR (African American) 26 ML/MIN (>60); Globulin 3.2 g/dL (1.3-3.2); Glucose 126 mg/dl (74-100); Magnesium 2.2 mg/dl (1.6-2.3); Total Protein,Serum 5.9 g/dl (6.3-8.2)
[2024-03-07 07:56] LABS: MANUAL DIFFERENTIAL MANUAL DIFFERENTIAL (MANUAL DIFF)
--- NOTE | 2024-03-07 08:15 | P.CONPHA_ITS ---
Pharmacy Consult Date: 03/07/24 Time: 08:16 Referring provider: DR BOTELLO Reason for Consult:: VANCOMYCIN DOSING CONSULT Allergies Allergy/AdvReac Type Severity Reaction Status Date / Time No Known Allergies Allergy Verified 03/06/24 22:55 New Prescriptions to Start Prescriptions: Height: 1.73 m Weight: 58.27 kg Laboratory Results:: Laboratory Results - last 24 hr 03/06/24 22:10: WBC 13.8 H, RBC 4.12 L, Hgb 12.0 L, Hct 38.4 L, MCV 93.3, MCH 29.1, MCHC 31.2 L, RDW 14.1, Plt Count 233, MPV 8.5, Neut % (Auto) 91.7 H, Lymph % (Auto) 3.0 L, [place] % (Auto) 4.2, Eos % (Auto) 0.6, Baso % (Auto) 0.6, Neut # (Auto) 12.7 H, Lymph # (Auto) 0.4 L, [place] # (Auto) 0.6, Eos # (Auto) 0.1, Baso # (Auto) 0.1, Total Counted 100, Neutrophils % (Manual) 85 H, Lymphocytes % (Manual) 10, Monocytes % (Manual) 5, Differential Comment , Platelet Estimate Normal, Giant Platelets 1+, RBC Morphology Not Reportable, Poikilocytosis 1+, ESR 55 H, PT 13.5 H, INR 1.23 H, APTT 33.2 H, Sodium 139, Potassium 4.7, Chloride 104, Carbon Dioxide 15 L, Anion Gap 24.7 H, BUN 65 H, Creatinine 3.30 H , Estimated GFR 19 L*, Est GFR ( Amer) 22 L, Glucose 178 H, Calcium 9.7, Phosphorus 9.0 H, Magnesium 2.7 H, Total Bilirubin 0.8, AST 26, ALT 14, Alkaline Phosphatase 84, Troponin I 2.27 H, C-Reactive Protein 380.3 H, NT-Pro-B Natriuret Pep 103151 H, Total Protein 7.6, Albumin 3.6, Globulin 4.0 H, Albumin/Globulin Ratio 0.9 L 03/06/24 22:15: Urine Color Dark yellow, Urine Appearance Clear, Urine pH 5.0, Ur Specific [place] >= 1.030, Urine Protein 1+ A, Urine Glucose (UA) Negative, Urine Ketones Negative, Urine Blood Negative, Urine Nitrate Negative, Urine Bilirubin 2+ A, Urine Urobilinogen 0.2, Ur Leukocyte Esterase Negative, Urine RBC None, Urine WBC 5-10, Ur Squamous Epith Cells None, Urine Bacteria 1+ 03/06/24 22:45: Lactate 3.7 H 03/06/24 23:07: VBG pH 7.17 L, VBG pCO2 52.7 H, VBG pO2 30.5, VBG HCO3 18.9 L, VBG Total CO2 20.5 L, VBG O2 Saturation 41.8 L, VBG Base Excess -9.6 L, VBG Lactic Acid 5.3 H 03/07/24 03:28: Lactate 3.9 H, Troponin I 1.97 H 03/07/24 07:03: WBC 10.5, RBC 3.68 L, Hct 34.5 L, MCV 93.8, MCH 29.0, MCHC 30.9 L, RDW 14.2, Plt Count 172 D, MPV 8.4, Neut % (Auto) 90.9 H, Lymph % (Auto) 4.7 L, [place] % (Auto) 3.9, Eos % (Auto) 0.1, Baso % (Auto) 0.3, Neut # (Auto) 9.6 H, Lymph # (Auto) 0.5 L, [place] # (Auto) 0.4, Eos # (Auto) 0.0, Baso # (Auto) 0.0, Sodium 140, Potassium 4.5, Chloride 110 H, Carbon Dioxide 13 L, Anion Gap 21.5 H , BUN 59 H, Creatinine 2.90 H, Estimated Creat Clear 19, Estimated GFR 21 L, Est GFR ( Amer) 26 L, Glucose 126 H D, Calcium 8.4, Magnesium 2.2 D, Total Bilirubin 0.8, AST 38 D, ALT 12, Alkaline Phosphatase 70, Total Protein 5.9 L, Albumin 2.7 L D, Globulin 3.2, Albumin/Globulin Ratio 0.8 L Medical History: Medical History (Updated 03/07/24 @ 02:50 by Katerina Alexander RN) No significant past medical history COPD (chronic obstructive pulmonary disease) Assessment and Plan Assessment and plan all Dx Assessment and Plan for all problems:: Pharmacokinetic dosing service Objective: Age: 73 yo Serum creatinine: 2.9 mg/dL Height: 68.0 Inches Weight (kg): 58.27 Diagnosis: PNEUMONIA Assessment: IBW (kg): 68.40 Dosing wt(kg): 58.27 Estimated Creatinine clearance (ml/min): 19.0 CRCL method: Cockcroft and Gault using ibw(default). Drug selected: Vancomycin Vd (liters): 46.6 (factor used: 0.8 L/kg) Garry (hr-1): 0.020 Half life (hrs): 34.66 CLvanco=?? 0.932 L/hr Recommended dose: 1000 mg Interval: 48 hrs Infusion time (hrs): 2.0 Predicted peak (mcg/mL): 34.1 Predicted trough (mcg/mL): 13.59 Total body weight is being used for vancomycin dosing. Recommendations: Give Vancomycin 1000 mg q 48 hrs with an expected Cpeak of 34.1 mcg/ml and an expected Ctrough of 13.59 mcg/ml AUC 0-24 /NINA Data: NINA 0.5 mcg/mL:?? AUC/NINA:? 1073.0 NINA 1.0 mcg/mL:?? AUC/NINA:? 536.5 --------- NINA 1.5 mcg/mL:?? AUC/NINA:? 357.7 NINA 2.0 mcg/mL:?? AUC/NINA:? 268.2 Thank you for the consult
[2024-03-07 08:34] LABS: Hemoglobin 10.7 g/dL (14.1-18.0)
[2024-03-07] MEDS: PIPERACILLIN/TAZO 2.25 GM in 0.9 % SODIUM CHLORIDE 50 ML IV ×3 (09:07→22:14)
[2024-03-07] MEDS: ENOXAPARIN 30MG/0.3ML SYRINGE 30 MG SUBCUT (09:09)
[2024-03-07] MEDS: NICOTINE 21MG/24HR PATCH 21 MG TD (09:15)
[2024-03-07 09:27] LABS: Lymphocytes % 5 % (10-50); Monocytes % 1 % (2-9); Neutrophils % 94 % (42-76); Total Cells Counted 100
[2024-03-07 09:28] LABS: Anion Gap 21.9 mEq/L (5-15); Blood Urea Nitrogen 57 mg/dl (9-20); Calcium 8.3 mg/dl (8.4-10.2); Carbon Dioxide 13 mmol/L (22.0-30.0); Chloride 110 mmol/L (98-107); Creatinine Clearance Estimated 20 mL/min (50-200); Estimated Glomerular Filt Rate 23 ml/min (>60); GFR (African American) 28 ML/MIN (>60); Glucose 103 mg/dl (74-100); Lactic Acid Follow up (RFLX 2) 3.4 mmol/L (0.7-2.1); Potassium 4.9 mmoL/L (3.5-5.1); Sodium 140 mmol/L (136-145)
[2024-03-07 09:28] LABS: Platelet Estimate Normal; RBC Morphology Normal
[2024-03-07 09:45] LABS: Procalcitonin 3.75 ng/mL (0.0-2.0)
[2024-03-07] MEDS: MORPHINE 2MG/ML SYRINGE 2 MG IV (09:57)
--- NOTE | 2024-03-07 13:39 | P.PN_ITS ---
Subjective *Date: 03/07/24 *Time: 17:14 Interval history: Evaluated this morning on rounds. Patient refused to wear BiPAP after improving mentation. Remains tachycardic, blood pressure with MAP sustaining above 65. Surprisingly sats in the 90s on room air. Chronically ill-appearing. Afebrile. Medical Exam Vital signs and Labs for Last 24 Hours: Vital Signs Temp Pulse Pulse Resp BP BP Pulse Ox 03/07/24 12:00 105 H 03/07/24 12:00 99.0 F 03/07/24 12:00 99.0 F 106 H 13 96/56 L 98 03/07/24 11:00 03/07/24 10:00 104 H 12 90/56 L 97 03/07/24 09:00 03/07/24 08:00 98.1 F 03/07/24 08:00 100 H 03/07/24 08:00 98.1 F 104 H 31 H 144/63 H 100 03/07/24 08:00 03/07/24 07:00 87 96/60 L 03/07/24 06:58 03/07/24 06:00 95 H 32 H 99/57 L 100 03/07/24 06:00 96 H 03/07/24 06:00 95 H 03/07/24 05:24 98.2 F 99 H 28 H 82/58 L 95 03/07/24 05:00 03/07/24 04:00 99 H 03/07/24 04:00 98.4 F 111 H 32 H 103/67 L 91 L 03/07/24 03:15 03/07/24 03:12 106 H 03/07/24 03:12 111 H 03/07/24 03:00 98.2 F 108 H 31 H 164/83 H 97 03/07/24 02:15 03/07/24 02:12 97.0 F L 109 H 33 H 127/60 100 03/07/24 02:11 104 H 03/07/24 01:50 96.4 F L 98 H 32 H 112/60 03/07/24 01:00 107/74 L 03/07/24 00:45 104/68 L 03/07/24 00:30 95.7 F L 99 H 25 H 112/46 L 90 L 03/07/24 00:15 95.7 F L 48 L 31 H 110/60 99 03/06/24 23:54 103 H 03/06/24 23:54 106 H 03/06/24 23:54 03/06/24 23:15 95.7 F L 61 27 H 136/33 L 71 L 03/06/24 23:10 03/06/24 23:01 114/54 L 03/06/24 22:45 119/62 03/06/24 22:31 95.7 F L 29 H 118/97 H 03/06/24 22:23 93.9 F L 112 H 32 H 105/62 L 80 L 03/06/24 22:17 93.9 F L 34 H 105/62 L 03/06/24 22:14 33 H 105/80 L O2 Del Method O2 Flow Rate FiO2 03/07/24 12:00 03/07/24 12:00 03/07/24 12:00 Room Air 03/07/24 11:00 Room Air 03/07/24 10:00 Room Air 03/07/24 09:00 Room Air 03/07/24 08:00 03/07/24 08:00 03/07/24 08:00 Room Air 03/07/24 08:00 Room Air 100 03/07/24 07:00 Room Air 03/07/24 06:58 Room Air 03/07/24 06:00 Room Air 03/07/24 06:00 03/07/24 06:00 03/07/24 05:24 Room Air 03/07/24 05:00 Room Air 03/07/24 04:00 03/07/24 04:00 Room Air 03/07/24 03:15 Room Air 03/07/24 03:12 03/07/24 03:12 03/07/24 03:00 Room Air 03/07/24 02:15 Non-Rebreather 03/07/24 02:12 Non-Rebreather 03/07/24 02:11 03/07/24 01:50 Non-Rebreather 15 03/07/24 01:00 03/07/24 00:45 03/07/24 00:30 BiPAP 03/07/24 00:15 03/06/24 23:54 03/06/24 23:54 03/06/24 23:54 BiPAP 100 03/06/24 23:15 03/06/24 23:10 100 03/06/24 23:01 03/06/24 22:45 03/06/24 22:31 03/06/24 22:23 Non-Rebreather 03/06/24 22:17 03/06/24 22:14 Intake and Output 03/06/24 03/07/24 03/07/24 23:59 07:59 15:59 Intake Total 465 / 465 Output Total 65 / 65 Balance 400 / 400 Intake: Intake, Oral Amount 50 / 50 Intake, Total IV Amount 415 / 415 0.9 % Sodium Chloride 1000ML 1, 415 / 415 000 ml @ 75 mls/hr IV .[id number] [facility] Rx#:[id number] Output: Output, Urine Amount (Catheter) [place] Other: Number of Unmeasured Voids 0 Weight 61.292 kg 58.27 kg 58.27 kg Patient Weight 03/07/24 23:59 Weight 58.27 kg Laboratory Results - last 24 hr 03/06/24 22:10: WBC 13.8 H, RBC 4.12 L, Hgb 12.0 L, Hct 38.4 L, MCV 93.3, MCH 29.1, MCHC 31.2 L, RDW 14.1, Plt Count 233, MPV 8.5, Neut % (Auto) 91.7 H, Lymph % (Auto) 3.0 L, [place] % (Auto) 4.2, Eos % (Auto) 0.6, Baso % (Auto) 0.6, Neut # (Auto) 12.7 H, Lymph # (Auto) 0.4 L, [place] # (Auto) 0.6, Eos # (Auto) 0.1, Baso # (Auto) 0.1, Total Counted 100, Neutrophils % (Manual) 85 H, Lymphocytes % (Manual) 10, Monocytes % (Manual) 5, Differential Comment , Platelet Estimate Normal, Giant Platelets 1+, RBC Morphology Not Reportable, Poikilocytosis 1+, ESR 55 H, PT 13.5 H, INR 1.23 H, APTT 33.2 H, Sodium 139, Potassium 4.7, Chloride 104, Carbon Dioxide 15 L, Anion Gap 24.7 H, BUN 65 H, Creatinine 3.30 H , Estimated GFR 19 L*, Est GFR ( Amer) 22 L, Glucose 178 H, Calcium 9.7, Phosphorus 9.0 H, Magnesium 2.7 H, Total Bilirubin 0.8, AST 26, ALT 14, Alkaline Phosphatase 84, Troponin I 2.27 H, C-Reactive Protein 380.3 H, NT-Pro-B Natriuret Pep 610363 H, Total Protein 7.6, Albumin 3.6, Globulin 4.0 H, Albumin/Globulin Ratio 0.9 L 03/06/24 22:15: Urine Color Dark yellow, Urine Appearance Clear, Urine pH 5.0, Ur Specific [place] >= 1.030, Urine Protein 1+ A, Urine Glucose (UA) Negative, Urine Ketones Negative, Urine Blood Negative, Urine Nitrate Negative, Urine Bilirubin 2+ A, Urine Urobilinogen 0.2, Ur Leukocyte Esterase Negative, Urine RBC None, Urine WBC 5-10, Ur Squamous Epith Cells None, Urine Bacteria 1+ 03/06/24 22:45: Lactate 3.7 H 03/06/24 23:07: VBG pH 7.17 L, VBG pCO2 52.7 H, VBG pO2 30.5, VBG HCO3 18.9 L, VBG Total CO2 20.5 L, VBG O2 Saturation 41.8 L, VBG Base Excess -9.6 L, VBG Lactic Acid 5.3 H 03/07/24 03:28: Lactate 3.9 H, Troponin I 1.97 H 03/07/24 07:03: WBC 10.5, RBC 3.68 L, Hgb 10.7 L D, Hct 34.5 L, MCV 93.8, MCH 29.0, MCHC 30.9 L, RDW 14.2, Plt Count 172 D, MPV 8.4, Neut % (Auto) 90.9 H, Lymph % (Auto) 4.7 L, [place] % (Auto) 3.9, Eos % (Auto) 0.1, Baso % (Auto) 0.3, Neut # (Auto) 9.6 H, Lymph # (Auto) 0.5 L, [place] # (Auto) 0.4, Eos # (Auto) 0.0, Baso # (Auto) 0.0, Total Counted 100, Neutrophils % (Manual) 94 H, Lymphocytes % (Manual) 5 L, Monocytes % (Manual) 1 L, Platelet Estimate Normal, RBC Morphology Normal, Sodium 140, Potassium 4.5, Chloride 110 H, Carbon Dioxide 13 L, Anion Gap 21.5 H, BUN 59 H, Creatinine 2.90 H, Estimated Creat Clear 19, Estimated GFR 21 L, Est GFR ( Amer) 26 L, Glucose 126 H D, Calcium 8.4, Magnesium 2.2 D, Total Bilirubin 0.8, AST 38 D, ALT 12, Alkaline Phosphatase 70, Total Protein 5.9 L, Albumin 2.7 L D, Globulin 3.2, Albumin/Globulin Ratio 0.8 L 03/07/24 08:46: Sodium 140, Potassium 4.9, Chloride 110 H, Carbon Dioxide 13 L, Anion Gap 21.9 H, BUN 57 H, Creatinine 2.70 H, Estimated Creat Clear 20, Estimated GFR 23 L, Est GFR ( Amer) 28 L, Glucose 103 H, Lactate 3.4 H, Calcium 8.3 L, Procalcitonin 3.75 H I & O for Labs for Last 24 Hours: Intake & Output 03/04/24 03/05/24 03/06/24 03/07/24 23:59 23:59 23:59 23:59 Intake Total 465 / 465 Output Total 65 / 65 Balance 400 / 400 Weight 61.292 kg 58.27 kg Constitutional: Present mild distress, cachectic and chronically ill appearing Head: Present atraumatic ENT: Present mucous membranes dry Comment:: Edentulous Neck: Present normal inspection Respiratory: Present accessory muscle use, prolonged expiratory phase, rhonchi, crackles (Predominantly in right lung field) and diminished air movement (In right lung field); Absent wheezes Cardiac: Present Irregularly Regular and Tachycardia GI: Present soft and normal bowel sounds; Absent distention or tenderness Extremities: Present normal inspection and full ROM; Absent tenderness or edema Comment:: Thin Skin: Present intact; Absent erythema Neuro: Present Grossly Intact, alert, awake and moves all extremities Comment:: Oriented to self, difficult to assess orientation to place and situation. Assessment and Plan *Assessment and plan (1) Septic shock: Status: Acute Category: Medical Code(s): A41.9 - Sepsis, unspecified organism; R65.21 - Severe sepsis with septic shock (2) Acute hypoxemic respiratory failure: Status: Acute Category: Medical Code(s): J96.01 - Acute respiratory failure with hypoxia (3) Pneumonia: Status: Acute Category: Medical Code(s): J18.9 - Pneumonia, unspecified organism (4) NSTEMI (non-ST elevated myocardial infarction): Status: Acute Category: Medical Code(s): I21.4 - Non-ST elevation (NSTEMI) myocardial infarction (5) JULIA (acute kidney injury): Status: Acute Category: Medical Code(s): N17.9 - Acute kidney failure, unspecified (6) Cavitating mass of lung: Status: Acute Category: Medical Code(s): J98.4 - Other disorders of lung (7) Severe protein-calorie malnutrition: Status: Acute Category: Medical Code(s): E43 - Unspecified severe protein-calorie malnutrition (8) Tobacco use disorder: Status: Acute Category: Medical Code(s): F17.200 - Nicotine dependence, unspecified, uncomplicated Plan 73-year-old male who presented with septic shock secondary to pneumonia with acute hypoxemic respiratory failure and respiratory acidosis. Tolerated BiPAP briefly overnight. Improved mentation and refused to wear BiPAP any longer. Labs this morning showing slight improvement with white count down from 13.8- 10.5. Kidney function showing some improvement after fluid resuscitation however still significant injury with BUN 59, creatinine 2.7. ESR and CRP elevated 55 and 380 respectively. Procalcitonin elevated at 3.75. Per my review of CT of chest, has diffuse pneumonia in right lung along with cavitary lesion concerning for infection versus cancer. Left pulmonology and cardiology evaluate the patient in the morning. Troponin initially elevated at 2.27, trending down at 1.57. Suspect consistent with supply/demand mismatch, type II NSTEMI. T wave inversions noted on telemetry but no paul ST elevations. -Holding on further fluids for now, will maintain MAP greater than 65. -Low threshold to initiate norepinephrine if MAP consistently below 60-65 -Family at bedside, discussed goals of care. Patient full code at this time based on his preference, given his disorientation however, will default to standard of full code has I am not sure he can coherently make decision otherwise. Family to honor this decision for now but request to be contacted if he decompensates for further goals of care discussion. -Repeat labs ordered for this afternoon to monitor kidney function and electrolytes. - Noted to have anemia with hemoglobin of 10.7. No signs of active bleeding. Transfusion threshold hemoglobin less than 7 -CBC, CMP, magnesium, phosphorus, CRP, ESR, Pro-Fabricio ordered for the morning. ICU/Critical care attestation This patient is critically ill with 35 minutes devoted solely to this patient managing life/organ supporting interventions that required physician assessment. This includes time spent making adjustments in respiratory support, IV fluid administration, consideration of/titration of pressors, adjustments of me dications, discussion of patient with consultants and other care providers as well as updating patient and/or family (if patient by virtue of his/her condition is unable to participate in decision making). This does not include time spent performing separately billed procedures. Time is not concurrent with that of other providers.
[2024-03-07 18:11] LABS: Chloride 110 mmol/L (98-107); Potassium 4.6 mmoL/L (3.5-5.1); Sodium 140 mmol/L (136-145)
[2024-03-07 18:14] LABS: Anion Gap 21.6 mEq/L (5-15); Blood Urea Nitrogen 64 mg/dl (9-20); Calcium 8.4 mg/dl (8.4-10.2); Carbon Dioxide 13 mmol/L (22.0-30.0); Creatinine Clearance Estimated 17 mL/min (50-200); Estimated Glomerular Filt Rate 19 ml/min (>60); GFR (African American) 22 ML/MIN (>60); Glucose 126 mg/dl (74-100)
--- NOTE | 2024-03-07 19:09 | EXP.SEPSISRE ---
[facility] Tissue Perfusion Eval Sepsis Re-Evaluation Performed: Yes Date Performed: 03/07/24 Time Performed: 03:00
[2024-03-07] MEDS: MVI, ADULT NO.1 WITH VIT K 10 ML, THIAMINE HCL 100 MG, MAGNESIUM SULFATE 2 GM in LACTAT... 250 ML IV (19:29)
[2024-03-08] VITALS (15 sets, daily range): BP systolic 84–124; BP diastolic 42–83; PULSE 80–107; RESP 9–27; TEMP 36.1–36.7; O2SAT 91–100; BMI 19.4; BMI 19.5
[2024-03-08] MEDS: LORazepam 2MG/ML VIAL 0.5 MG IV (02:30)
--- NOTE | 2024-03-08 02:35 | PC.NURSE ---
Over past 45 minutes patient restless, becoming agitated, pulling clothes off, pulling leads off attempting to get out of bed daughter at bedside. Staff and daughter attempted comfort measures, repositioning, warm blankets, back rubs, unsuccessful. Currently patient is oriented to self, daughter request PRN anti anxiety medication for patient so he could get some rest. Daughter discussed with patient while nurse at bedside the benefits of medication, patient agreeable to medication.
[2024-03-08] MEDS: PIPERACILLIN/TAZO 2.25 GM in 0.9 % SODIUM CHLORIDE 50 ML IV (04:29)
--- NOTE | 2024-03-08 04:38 | PC.NURSE ---
Patient rested most of the shift until early am he became restless and agitated, PRN ativan given and patient settled down and returned to resting. Patient alert to self, can voice needs but is forgetful and requires reorientation. Family remained at bedside throughout shift. Reviewed POC and d/c goals with patient and daughter, no new c/o.
[2024-03-08] MEDS: MORPHINE 2MG/ML SYRINGE 2 MG IV ×2 (06:11→17:36)
--- NOTE | 2024-03-08 06:38 | PC.NURSE ---
[id number] Patient becoming agitated again and restless pulling at everything daughter at bedside, called out, patient and daughter request pain medication due to patient c/o back hurting
--- NOTE | 2024-03-08 08:51 | CA_ITS ---
APPROVED REPORT EXAM: Limited 2D Echocardiogram District Representative: Zully Nguyen CRT Ht: 5 ft 8 in Wt: 128lbs BSA: 1.69 BP: 105/80 mmHg Indications: CHF, LUNG MASSES, SEPTIC Very limited images pt uncooperative, has poor u/s windows, pt pulled at transducer and EKG leads throughout test 2D Dimensions Aortic Root 1.91 cm Left Atrium 3.53 cm M-Mode Dimensions RVDd 3.25 cm (0.9-2.6) LVDd 4.85 cm (3.5-5.7) Ao Diam 3.83 cm (2.0-3.7) LVDs 3.93 cm (3.5-5.7) IVSd 1.82 cm (0.6-1.1) PWd 0.62 cm (0.6-1.1) EF (Teich) 39.10% FS 19.00% EDV (Teich) 110.20 mL ESV (Teich) 67.10 mL Tricuspid Valve TR P. Velocity 314.00 cm/s RAP Estimate 10.00 mmHg RVSP 49.50 mmHg Other Information Study Quality: Technically Difficult. Technically limited study due to lung disease. Conclusion This is a technically limited TTE to evaluate for biventricular systolic function. Limited windows were obtained. Technically difficult study. The left ventricle is normal in size. There is increased LV wall thickness. There is moderate to severe hypokinesis of the left ventricle. There is a severe hypokinesis of the anterior and anteroseptal LV aldana. LVEF is 30%. The right ventricle grossly appears to be moderately dilated with moderate reduction in RV function. Mild MR is present. Moderate TR is present. RVSP is 40-45 mmHg. No evidence of pericardial effusions. Electronically signed by : Macie Jaime MD 03/08/2024 11:53:15
[2024-03-08 09:12] LABS: Alanine Aminotransferase 11 U/L (12-78); Albumin Level 2.6 g/dl (3.5-5.0); Albumin/Globulin Ratio 0.9 (1.1-1.8); Alkaline Phosphatase 64 U/L (38-126); Anion Gap 17.7 mEq/L (5-15); Aspartate Amino Transferase 76 U/L (17-59); Bilirubin,Total 0.9 mg/dl (0.2-1.3); Blood Urea Nitrogen 67 mg/dl (9-20); Calcium 8.5 mg/dl (8.4-10.2); Carbon Dioxide 16 mmol/L (22.0-30.0); Chloride 111 mmol/L (98-107); Creatinine Clearance Estimated 15 mL/min (50-200); Estimated Glomerular Filt Rate 17 ml/min (>60); GFR (African American) 20 ML/MIN (>60); Glucose 122 mg/dl (74-100); Magnesium 3.1 mg/dl (1.6-2.3); Phosphorous 5.9 mg/dl (2.5-4.5); Potassium 4.7 mmoL/L (3.5-5.1); Sodium 140 mmol/L (136-145); Total Protein,Serum 5.6 g/dl (6.3-8.2)
[2024-03-08 09:16] LABS: C-Reactive Protein 309.7 mg/L (0-4)
[2024-03-08] MEDS: MVI, ADULT NO.1 WITH VIT K 10 ML, THIAMINE HCL 100 MG, MAGNESIUM SULFATE 2 GM in LACTAT... 125 ML IV (09:18)
[2024-03-08 09:27] LABS: Procalcitonin 5.63 ng/mL (0.0-2.0)
[2024-03-08 09:29] LABS: Troponin I 3.07 ng/ml (0.00-0.034)
[2024-03-08 09:37] LABS: Erythrocyte Sedimentation Rate 80 mm/hr (0-20)
--- NOTE | 2024-03-08 09:45 | EXP.PULM.CON ---
History of Present Illness History of present illness: Much of the history is obtained from chart review. Patient not responding appropriately to verbal commands. Mr. Gonzalez is a 73-year-old presented to the ER after he was found unconscious. Patient admission noted to be hypoxic and hypothermic. Significant weight loss of around 100 pounds in the last 1 year. [facility] Disclaimer: The information contained in this section may have been updated after the patient was seen, as this information can be updated by other users. Medical History (Updated 03/08/24 @ 10:47 by Minoo Watts MD) Pulmonary emphysema No significant past medical history COPD (chronic obstructive pulmonary disease) Family History (Updated 03/07/24 @ 02:50 by Katerina Alexander RN) Other No significant family history Social History (Updated 03/06/24 @ 23:10 by Mehul Lutz MD) Smoking Status: Current every day smoker alcohol intake: current current occupational status: employed Travel in the last 8 weeks: None Review of Systems Review of Systems Review of systems:: unable to obtain *Neurologic Neurologic: Reports as per [facility] Pulmonology Exam Inpatient Vital signs and Labs for Last 24 Hours: Temp Pulse Resp BP Pulse Ox O2 Del Method O2 Flow Rate 97.2 F L 86 19 103/53 L 96 Room Air 95 03/08/24 08:00 03/08/24 08:00 03/08/24 08:00 03/08/24 08:00 03/08/24 08:00 03/08/24 08:47 03/07/24 23:00 FiO2 100 03/06/24 23:54 Laboratory Results - last 24 hr 03/07/24 08:46: Procalcitonin 3.75 H 03/07/24 17:55: Sodium 140, Potassium 4.6, Chloride 110 H, Carbon Dioxide 13 L, Anion Gap 21.6 H, BUN 64 H, Creatinine 3.30 H D, Estimated Creat Clear 17, Estimated GFR 19 L*, Est GFR ( Amer) 22 L D, Glucose 126 H D, Calcium 8.4 03/08/24 08:50: ESR 80 H, Sodium 140, Potassium 4.7, Chloride 111 H, Carbon Dioxide 16 L, Anion Gap 17.7 H, BUN 67 H, Creatinine 3.60 H, Estimated Creat Clear 15, Estimated GFR 17 L*, Est GFR ( Amer) 20 L, Glucose 122 H, Calcium 8.5, Phosphorus 5.9 H D, Magnesium 3.1 H D, Total Bilirubin 0.9, AST 76 H D, ALT 11 L, Alkaline Phosphatase 64, Troponin I 3.07 H, C-Reactive Protein 309.7 H, Total Protein 5.6 L, Albumin 2.6 L, Globulin 3.0, Albumin/Globulin Ratio 0.9 L, Procalcitonin 5.63 H I & O for Labs for Last 24 Hours: Intake & Output 03/05/24 03/06/24 03/07/24 03/08/24 23:59 23:59 23:59 23:59 Intake Total 475 / 1012 1029 / 1029 Output Total 140 / 140 Balance 335 / 872 1009 / 1009 Weight 135 lb 2 oz 128 lb 7.414 oz 128 lb 7.414 oz Microbiology Reports for the Last 24 Hours: Microbiology 03/06/24 22:45 Blood Blood Culture - Preliminary NO GROWTH AFTER 24 HOURS 03/06/24 22:10 Blood Blood Culture - Preliminary NO GROWTH AFTER 24 HOURS Constitutional: Present severe distress Head: Present normocephalic and atraumatic ENT: Present normal exam, normal oropharynx and mucous membranes moist Neck: Present normal inspection and full ROM Respiratory: Present prolonged expiratory phase, rhonchi and wheezes; Absent able to speak in complete sentences Cardiac: Present S1/S2, Tachycardia and radial pulses present GI: Present soft and distention; Absent tenderness or guarding Skin: Present intact; Absent cyanosis or jaundice Neuro: Present awake; Absent alert or oriented x 3 Extremities: Present normal inspection; Absent clubbing or cyanosis Psychiatric: Present normal affect and cooperative Meds Home Medications and Allergies Home Medications ?Medication ?Instructions ?Recorded ?Confirmed ?Type No Known Home Medications 03/07/24 03/07/24 History New Prescriptions to Start Prescriptions: Allergies Allergy/AdvReac Type Severity Reaction Status Date / Time No Known Allergies Allergy Verified 03/06/24 22:55 Results Laboratory Findings 03/07/24 07:03 03/08/24 08:50 PT/INR, D-dimer PT 13.5 seconds (10.1-12.5) H 03/06/24 22:10 INR 1.23 (0.9-1.1) H 03/06/24 22:10 Abnormal lab findings: Abnormal Labs 03/06/24 03/06/24 03/06/24 22:10 22:15 22:45 WBC 13.8 H RBC 4.12 L Hgb 12.0 L Hct 38.4 L MCHC 31.2 L Neut % (Auto) 91.7 H Lymph % (Auto) 3.0 L Neut # (Auto) 12.7 H Lymph # (Auto) 0.4 L Neutrophils % (Manual) 85 H Lymphocytes % (Manual) Monocytes % (Manual) ESR 55 H PT 13.5 H INR 1.23 H APTT 33.2 H VBG pH VBG pCO2 VBG HCO3 VBG Total CO2 VBG O2 Saturation VBG Base Excess VBG Lactic Acid Chloride Carbon Dioxide 15 L Anion Gap 24.7 H BUN 65 H Creatinine 3.30 H Estimated GFR 19 L* Est GFR ( Amer) 22 L Glucose 178 H Lactate 3.7 H Calcium Phosphorus 9.0 H Magnesium 2.7 H AST ALT Troponin I 2.27 H C-Reactive Protein 380.3 H NT-Pro-B Natriuret Pep [id number] H Total Protein Albumin Globulin 4.0 H Albumin/Globulin Ratio 0.9 L Procalcitonin Urine Protein 1+ A Urine Bilirubin 2+ A 03/06/24 03/07/24 03/07/24 23:07 03:28 07:03 WBC RBC 3.68 L Hgb 10.7 L D Hct 34.5 L MCHC 30.9 L Neut % (Auto) 90.9 H Lymph % (Auto) 4.7 L Neut # (Auto) 9.6 H Lymph # (Auto) 0.5 L Neutrophils % (Manual) 94 H Lymphocytes % (Manual) 5 L Monocytes % (Manual) 1 L ESR PT INR APTT VBG pH 7.17 L VBG pCO2 52.7 H VBG HCO3 18.9 L VBG Total CO2 20.5 L VBG O2 Saturation 41.8 L VBG Base Excess -9.6 L VBG Lactic Acid 5.3 H Chloride 110 H Carbon Dioxide 13 L Anion Gap 21.5 H BUN 59 H Creatinine 2.90 H Estimated GFR 21 L Est GFR ( Amer) 26 L Glucose 126 H D Lactate 3.9 H Calcium Phosphorus Magnesium AST ALT Troponin I 1.97 H C-Reactive Protein NT-Pro-B Natriuret Pep Total Protein 5.9 L Albumin 2.7 L D Globulin Albumin/Globulin Ratio 0.8 L Procalcitonin Urine Protein Urine Bilirubin 03/07/24 03/07/24 03/08/24 08:46 17:55 08:50 WBC RBC Hgb Hct MCHC Neut % (Auto) Lymph % (Auto) Neut # (Auto) Lymph # (Auto) Neutrophils % (Manual) Lymphocytes % (Manual) Monocytes % (Manual) ESR 80 H PT INR APTT VBG pH VBG pCO2 VBG HCO3 VBG Total CO2 VBG O2 Saturation VBG Base Excess VBG Lactic Acid Chloride 110 H 110 H 111 H Carbon Dioxide 13 L 13 L 16 L Anion Gap 21.9 H 21.6 H 17.7 H BUN 57 H 64 H 67 H Creatinine 2.70 H 3.30 H D 3.60 H Estimated GFR 23 L 19 L* 17 L* Est GFR ( Amer) 28 L 22 L D 20 L Glucose 103 H 126 H D 122 H Lactate 3.4 H Calcium 8.3 L Phosphorus 5.9 H D Magnesium 3.1 H D AST 76 H D ALT 11 L Troponin I 3.07 H C-Reactive Protein 309.7 H NT-Pro-B Natriuret Pep Total Protein 5.6 L Albumin 2.6 L Globulin Albumin/Globulin Ratio 0.9 L Procalcitonin 3.75 H 5.63 H Urine Protein Urine Bilirubin Assessment and Plan *Assessment and plan (1) Pneumonia: Status: Acute Category: Medical Code(s): J18.9 - Pneumonia, unspecified organism (2) Pulmonary emphysema: Status: Acute Category: Medical Code(s): J43.9 - Emphysema, unspecified Plan Much of the history is obtained from chart review. Patient not responding appropriately to verbal commands. Mr. Gonzalez is a 73-year-old presented to the ER after he was found unconscious. Patient admission noted to be hypoxic and hypothermic. Significant weight loss of around 100 pounds in the last [address] on admission prominent right upper lobe cavitary/necrotizing pneumonia along with right lower lobe pneumonia. Blood gas upon admission likely combination of mixed metabolic and respiratory acidosis. BUN/creatinine abnormal, no baseline. GFR <20. Patient upon admission was initiated on vancomycin and Zosyn. Blood cultures no growth 24 hours. Patient on examination not responding to verbal commands. Bilateral rhonchi mild expiratory wheezing noted. Saturating 100% on room air. Refusing treatments and sputum induction. Awaiting family discussion for goals of care. Plan: F/u VBG Continue vancomycin and cefepime renally dosed pending culture results. DuoNebs every 6 hours on a scheduled basis Follow-up TB QuantiFERON Sputum induction followed by cultures # Thank you for involving pulmonary in this patient care. Will continue to follow.
--- NOTE | 2024-03-08 09:47 | HMH.PTEV ---
Physical Therapy Evaluation Rehab PT IP Evaluation Start: 03/08/24 08:42 Freq: ONCE Status: Active Protocol: Document 03/08/24 09:43 KERI (Rec: 03/08/24 09:46 KERI [id number]) Subjective/History History History Per H&P: This 73-year-old man , as described is living alone smoking about 2 packs a day. Family has noted that he is lost a day estimated 100 pounds since early in the year . From history family came to see him at his home he was not doing well. They encouraged him to go to the hospital EMS was called he refused to come. Patient went unconscious family then called EMS and he was brought here, in very poor condition, hypothermic and hypoxic. ER then provided bear hugger for warmth also warm IV fluids, placed him on a BiPAP and was able to get his saturations up to 94. I have spoken with the ER physician about her conversations with him. And I confer that when I was speaking with him he is alert and oriented. He knows where he is and he knows that he does not want a lot of care and he did not want to leave his house. He has expressed that he wants the BiPAP off which was done and he was placed upon a mask. Subjective Subjective PT and OT provided max encouragement for pt to wake. Pt able to open eyes briefly but not able to answer any history questions d/t lethargic state. New diagnosis of cancer in past 12 No months? Rehab PT IP Eval Objective Appearance Patient Behavior Fatigued Ambulation Patient Able to Ambulate No Balance Ability to Arise Unable Sitting Balance Leans or slides in chair Transfers Bed Transfer Ability Total/Dependent (100%) Rehab PT IP prob,goals,plan Problems Date of Evaluation: 03/08/24 PT IP Problems Bed Mobility,Transfers,Gait, Balance,Self care,Safety Rehab Potential Rehab Potential Good Plan PT Intervention Plan Bed Mobility,Transfers,Gait, Balance,Safety,Therapeutic Exercise Other Intervention Plan 1-2 times PT Plan Frequency Daily Duration LOS Discharge Goals Bed Transfer Ability Maximum x 1 (75% assist) Sit to Stand Chair Transfer Ability Maximum x 2 (75% assist) Discharge Plan PT Discharge Plan Initial physical therapy evaluation performed. Patient presents below baseline at this time in functional mobility and strength. PT evaluation was limited by pt's lethargic state and inability to follow commands at this time. Pt was DEP for rolling in bed/bed mobility. Pt not safe to return home at this time d/t current level of functional mobility. PT with further assess pt's mobility throughout [facility] stay. PT recommending rehabilitation stay upon d/c from [facility]. Pt would benefit from skilled PT while at [facility] to prevent further functional decline and maximize safety with mobility . Eval Complexity Eval Charge Codes 04720 - High Complexity PHYSICIAN CERTIFICATION: I certify the specified therapy services for Jose Cruz Gonzalez are required, authorized, and reviewed every 30 days.
[2024-03-08] MEDS: ENOXAPARIN 30MG/0.3ML SYRINGE 30 MG SUBCUT (10:03)
[2024-03-08] MEDS: NICOTINE 21MG/24HR PATCH 21 MG TD (10:08)
--- NOTE | 2024-03-08 10:09 | HMH.OTEV ---
OT Inpatient Evaluation Rehab OT IP Evaluation Start: 03/08/24 08:42 Freq: ONCE Status: Active Protocol: Document 03/08/24 09:58 PEGGY (Rec: 03/08/24 10:09 PEGGY [id number]) Rehab OT IP Assessment Subjective History This 73-year-old man, as described is living alone smoking about 2 packs a day. Family has noted that he is lost a day estimated 100 pounds since early in the year . From history family came to see him at his home he was not doing well. They encouraged him to go to the hospital EMS was called he refused to come. Patient went unconscious family then called EMS and he was brought here, in very poor condition, hypothermic and hypoxic. ER then provided bear hugger for warmth also warm IV fluids, placed him on a BiPAP and was able to get his saturations up to 94. I have spoken with the ER physician about her conversations with him. And I confer that when I was speaking with him he is alert and oriented. He knows where he is and he knows that he does not want a lot of care and he did not want to leave his house. He has expressed that he wants the BiPAP off which was done and he was placed upon a mask. He really did not want to stay in the hospital, but without being able to care for himself in no way home. And no EMS could drop him off at the house and this condition, he will be admitted to the floor. He will be a DNI, I have checked with him and made sure the family understood what that meant. Patient was also talked to by the ER physician if he wanted oncology to evaluate potentially 2 large masses in right lung and he said no. And agreement was made that we would place him upstairs and treat him for respiratory infection,, keep him comfortable try to improve his nutrition with the hopes of being able to release back to his own home in the near future . And would like to also express agreement with the ER physician that this patient is in very poor condition. Per family he had not been to medical care in the last 5 years he was told he had COPD at that time. Subjective oooo. Patient appears to be very fatigue and needed max A x2 to participate in bed mobility of rolling side to side to be positioned in bed for US. Objective Patient Orientation Person,Name,Age Bed Mobility bed mobility - rolling Assist Level Maximum x 2 (75% assist) Rehab OT IP prob,goals,plan Problems Date of Evaluation: 03/08/24 OT IP Problems Bed Mobility,Transfers,Balance ,Self care,Safety Rehab Potential Rehab Potential Good Plan OT intervention Plan Bed Mobility,Transfers,Balance ,Self care,Safety,Therapeutic Exercise OT Plan Frequency Daily Duration LOS Discharge Goals Bed Mobility Ability Assistance x2 Discharge Plan OT Discharge Plan Recommend placement at this time. Patient will require care and neeeding assistance of 2 for ADLs and fx'l mobility. Eval Complexity Eval Charge Codes 19451 - Low Complexity PHYSICIAN CERTIFICATION: I certify the specified therapy services for Jose Cruz Gonzalez are required, authorized, and reviewed every 30 days.
--- NOTE | 2024-03-08 10:44 | P.CONCA_ITS ---
History of Present Illness History of Present Illness Consult date: 03/08/24 Requesting physician: Uriel Aquino Chief complaint: elevated troponin History of present illness: This is a 73-year-old white gentleman who presented to the emergency department after his family found him unconscious and called EMS. He was brought here in very poor condition hypothermic and hypoxic. The patient's family had been trying to get him to come to the hospital because he had not been doing well at home but had refused until he was unconscious. When he arrived here to the emergency department he was put in a Haley hugger and given warm IV fluids and placed on BiPAP. His oxygen saturations did improve at that time. The patient was then admitted to the hospital secondary to a cavitary pneumonia. He was also found to have an elevated troponin at that time. The patient has significantly elevated renal function as well. He has not been to the doctor or received medical care in the last 5 years. His mental status is altered this morning. He does not tell me his name or where he is at. He is very lethargic and does not answer any of my questions. He appears to be in no distress and his vital signs are stable this morning. Of note the patient has had an 100 pound weight loss in the last year reportedly from his family. [facility] Disclaimer: The information contained in this section may have been updated after the patient was seen, as this information can be updated by other users. Medical History (Updated 03/08/24 @ 13:14 by Cecy Moran APRN) Ischemic cardiomyopathy Acute HFrEF (heart failure with reduced ejection fraction) Acute coronary syndrome Abnormal electrocardiogram [ECG] [EKG] Acute hypoxemic respiratory failure JULIA (acute kidney injury) Malnutrition Sepsis Pneumonia Cavitating mass of lung Septic shock Severe protein-calorie malnutrition Tobacco use disorder NSTEMI (non-ST elevated myocardial infarction) Pulmonary emphysema No significant past medical history COPD (chronic obstructive pulmonary disease) Family History (Updated 03/07/24 @ 02:50 by Katerina Alexander RN) Other No significant family history Social History (Updated 03/06/24 @ 23:10 by Mehul Lutz MD) Smoking Status: Current every day smoker alcohol intake: current current occupational status: employed Travel in the last 8 weeks: None Review of Systems Review of Systems Review of systems:: unable to obtain *Neurologic Neurologic: Reports as per HPI Exam Data for Last 24 hours Vital signs and Labs for Last 24 Hours: Temp Pulse Resp BP Pulse Ox O2 Del Method O2 Flow Rate 97.2 F L 86 19 103/53 L 96 Room Air 95 03/08/24 08:00 03/08/24 08:00 03/08/24 08:00 03/08/24 08:00 03/08/24 08:00 03/08/24 08:47 03/07/24 23:00 FiO2 100 03/06/24 23:54 Laboratory Results - last 24 hr 03/07/24 17:55: Sodium 140, Potassium 4.6, Chloride 110 H, Carbon Dioxide 13 L, Anion Gap 21.6 H, BUN 64 H, Creatinine 3.30 H D, Estimated Creat Clear 17, Estimated GFR 19 L*, Est GFR ( Amer) 22 L D, Glucose 126 H D, Calcium 8.4 03/08/24 08:50: ESR 80 H, Sodium 140, Potassium 4.7, Chloride 111 H, Carbon Dioxide 16 L, Anion Gap 17.7 H, BUN 67 H, Creatinine 3.60 H, Estimated Creat Clear 15, Estimated GFR 17 L*, Est GFR ( Amer) 20 L, Glucose 122 H, Calcium 8.5, Phosphorus 5.9 H D, Magnesium 3.1 H D, Total Bilirubin 0.9, AST 76 H D, ALT 11 L, Alkaline Phosphatase 64, Troponin I 3.07 H, C-Reactive Protein 309.7 H, Total Protein 5.6 L, Albumin 2.6 L, Globulin 3.0, Albumin/Globulin Ratio 0.9 L, Procalcitonin 5.63 H I & O for Last 24 hours: Intake & Output 03/05/24 03/06/24 03/07/24 03/08/24 23:59 23:59 23:59 23:59 Intake Total 475 / 1012 1029 / 1029 Output Total 140 / 140 Balance 335 / 872 1009 / 1009 Weight 135 lb 2 oz 128 lb 7.414 oz 128 lb 7.414 oz Microbiology Reports for the Last 24 Hours: Microbiology 03/06/24 22:45 Blood Blood Culture - Preliminary NO GROWTH AFTER 24 HOURS 03/06/24 22:10 Blood Blood Culture - Preliminary NO GROWTH AFTER 24 HOURS Constitutional Constitutional: no acute distress and thin *Routine HEENT Exam Head: Present normocephalic and atraumatic ENT: Present mucous membranes moist *Routine Neck Exam Neck: Present supple, full ROM and normal carotid upstroke; Absent JVD, carotid bruit or lymphadenopathy *Routine Respiratory Exam Respiratory: Present CTA bilaterally, normal respiratory effort, able to speak in complete sentences and symmetric chest movement *Routine Cardiovascular Exam Cardiovascular: Present RRR, Normal S1 and Normal S2; Absent murmur or gallop *Routine Abdominal Exam Abdominal: Present soft and normoactive bowel sounds; Absent tenderness, distended or organomegaly *Routine Extremities Exam Extremities: Present full ROM, pulses intact and normal capillary refill; Absent cyanosis, clubbing or edema *Routine Skin Exam Skin: Present intact and warm; Absent erythema *Routine Neurological Exam Neurological: Present alert, oriented X3 and CN II-XII intact; Absent sensory deficit or motor deficit Routine Psychiatric Exam Psychiatric: Present normal affect Meds Home Medications and Allergies Home Medications ?Medication ?Instructions ?Recorded ?Confirmed ?Type No Known Home Medications 03/07/24 03/07/24 History New Prescriptions to Start Prescriptions: Allergies Allergy/AdvReac Type Severity Reaction Status Date / Time No Known Allergies Allergy Verified 03/06/24 22:55 Assessment and Plan *Assessment and plan (1) NSTEMI (non-ST elevated myocardial infarction): Status: Acute Category: Medical Code(s): I21.4 - Non-ST elevation (NSTEMI) myocardial infarction (2) Acute HFrEF (heart failure with reduced ejection fraction): Status: Acute Category: Medical Code(s): I50.21 - Acute systolic (congestive) heart failure (3) Acute coronary syndrome: Status: Acute Category: Medical Code(s): I24.9 - Acute ischemic heart disease, unspecified (4) Ischemic cardiomyopathy: Status: Acute Category: Medical Code(s): I25.5 - Ischemic cardiomyopathy (5) Acute hypoxemic respiratory failure: Status: Acute Category: Medical Code(s): J96.01 - Acute respiratory failure with hypoxia (6) Sepsis: Status: Acute Category: Medical Code(s): A41.9 - Sepsis, unspecified organism (7) JULIA (acute kidney injury): Status: Acute Category: Medical Code(s): N17.9 - Acute kidney failure, unspecified (8) Pneumonia: Status: Acute Qualifiers: Laterality: right Lung location: unspecified part of lung Pneumonia type: due to unspecified organism Qualified Code(s): J18.9 - Pneumonia, unspecified organism Category: Medical Code(s): J18.9 - Pneumonia, unspecified organism (9) Cavitating mass of lung: Status: Acute Category: Medical Code(s): J98.4 - Other disorders of lung (10) Pulmonary emphysema: Status: Acute Qualifiers: Emphysema type: unspecified Qualified Code(s): J43.9 - Emphysema, unspecified Category: Medical Code(s): J43.9 - Emphysema, unspecified (11) Tobacco use disorder: Status: Acute Category: Medical Code(s): F17.200 - Nicotine dependence, unspecified, uncomplicated (12) Severe protein-calorie malnutrition: Status: Acute Category: Medical Code(s): E43 - Unspecified severe protein-calorie malnutrition (13) Declining functional status: Status: Acute Category: Medical Code(s): R53.81 - Other malaise (14) Malnutrition: Status: Acute Qualifiers: Malnutrition type: unspecified type Qualified Code(s): E46 - Unspecified protein-calorie malnutrition Category: Medical Code(s): E46 - Unspecified protein-calorie malnutrition (15) Abnormal electrocardiogram [ECG] [EKG]: Status: Acute Category: Medical Code(s): R94.31 - Abnormal electrocardiogram [ECG] [EKG] Plan Plan: 1. The patient was admitted to the hospital and found to have a right upper lobe cavitary pneumonia and right lower lobe pneumonia. He is getting IV antibiotics. There are also concerns that he may have a lung mass. Will defer this to the hospitalist and pulmonology. Quantiferon is currently pending. 2. The patient does have an elevated troponin consistent with a non-STEMI but his creatinine is 3.6 today. Will obtain an echocardiogram to evaluate his LV function. Preliminary echocardiogram shows an ejection fraction of 30%. 3. The patient does have a creatinine of 3.60. No baseline for comparison. 4. his BNP is 174,000. He also has a reduction in his ejection fraction at 30%. His RVSP is elevated at 40 to 45 mmHg. Stop IV fluids. Will start him on Lasix 80 mg IV twice daily for diuresis secondary to HFrEF and cardiomyopathy. 5. His blood pressure is acceptable. 6. His LDL goal is less than 55. Will obtain a lipid panel. Will start him on Lipitor 40 mg p.o. nightly secondary to acute coronary syndrome. 7. Stop IV fluids due to acute HFrEF and cardiomyopathy. 8. Start aspirin 81 mg daily due to acute coronary syndrome/non-STEMI. 9. Start a heparin drip due to his acute coronary syndrome/non-STEMI. 10. Tobacco cessation is highly advised and counseled. 11. The patient does have an abnormal EKG and an elevated troponin consistent with a non-STEMI/acute coronary syndrome. Once his renal function has improved consider an ischemic evaluation with left cardiac catheterization. 12. Further recommendations were made pending the patient's response to treatment. Thank you for the opportunity to help participate in the care of this patient. All recommendations and orders are per Dr. Jaime.
[2024-03-08 11:35] LABS: VBG Base Excess -10.3 mmol/L (-2.4-2.3); VBG HCO3 17.4 mmol/L (23-30); VBG Oxygen Saturation 83.6 % (50-70); VBG PCO2 43.7 mmol/L (35-51); VBG PH 7.22 mmol/L (7.31-7.41); VBG PO2 58.4 mmol/L (28-40); VBG Total CO2 18.7 mmol/L (23-27)
[2024-03-08 11:39] LABS: Lactate Venous 2.8 mmol/L (0.4-2.0)
--- NOTE | 2024-03-08 12:34 | HMH.PHAHEP ---
[facility] Pharmacy Heparin Dosing Demographic Data Admission date:: 03/07/24 Date: 03/08/24 Time: 12:34 Allergies Allergy/AdvReac Type Severity Reaction Status Date / Time No Known Allergies Allergy Verified 03/06/24 22:55 Height: 1.73 m Weight: 58.3 kg Indication Medication therapy:: Heparin Current Active Problems (Updated 03/08/24 @ 13:14 by Cecy Moran APRN) Ischemic cardiomyopathy (Acute) Acute HFrEF (heart failure with reduced ejection fraction) (Acute) Acute coronary syndrome (Acute) Abnormal electrocardiogram [ECG] [EKG] (Acute) Pulmonary emphysema (Acute) NSTEMI (non-ST elevated myocardial infarction) (Acute) Tobacco use disorder (Acute) Severe protein-calorie malnutrition (Acute) Septic shock (Acute) Acidosis, metabolic, with respiratory acidosis (Acute) Cavitating mass of lung (Acute) Pneumonia (Acute) Sepsis (Acute) Declining functional status (Acute) Malnutrition (Acute) JULIA (acute kidney injury) (Acute) Acute hypoxemic respiratory failure (Acute) CVA?: No Bleeding problem?: No Kidney disease?: No CO?: No Desired PTT range:: 50-75 seconds Monitoring Dose Monitor 1: Date: 03/08/24 Time: 12:30 PTT Result:: 41.0 (BASELINE) Infusion Rate:: 700 UNITS/HR Comment:: 3,500 UNIT BOLUS Dose Monitor 2: Date: 03/08/24 Time: 20:57 PTT Result:: 81.3 Infusion Rate:: DECREASE RATE TO 650 UNITS/HR Dose Monitor 3: Date: 03/09/24 Time: 04:05 PTT Result:: 58.5 Infusion Rate:: 650 UNITS/HR Core Measures Is INR > or = 2 at discharge?: No Most Recent Labs:: Laboratory Results - last 24 hr 03/07/24 17:55: Sodium 140, Potassium 4.6, Chloride 110 H, Carbon Dioxide 13 L, Anion Gap 21.6 H, BUN 64 H, Creatinine 3.30 H D, Estimated Creat Clear 17, Estimated GFR 19 L*, Est GFR ( Amer) 22 L D, Glucose 126 H D, Calcium 8.4 03/08/24 06:00: VBG pH 7.22 L, VBG pCO2 43.7, VBG pO2 58.4 H, VBG HCO3 17.4 L, VBG Total CO2 18.7 L, VBG O2 Saturation 83.6 H, VBG Base Excess -10.3 L, VBG Lactic Acid 2.8 H 03/08/24 08:50: ESR 80 H, Sodium 140, Potassium 4.7, Chloride 111 H, Carbon Dioxide 16 L, Anion Gap 17.7 H, BUN 67 H, Creatinine 3.60 H, Estimated Creat Clear 15, Estimated GFR 17 L*, Est GFR ( Amer) 20 L, Glucose 122 H, Calcium 8.5, Phosphorus 5.9 H D, Magnesium 3.1 H D, Total Bilirubin 0.9, AST 76 H D, ALT 11 L, Alkaline Phosphatase 64, Troponin I 3.07 H, C-Reactive Protein 309.7 H, Total Protein 5.6 L, Albumin 2.6 L, Globulin 3.0, Albumin/Globulin Ratio 0.9 L, Procalcitonin 5.63 H Were Heparin and Warfarin started on the same day?: No If not, why?: PATIENT TRANSITIONED TO COMFORT CARE
[2024-03-08] MEDS: CEFEPIME HCL 1 GM in 0.9 % SODIUM CHLORIDE 50 ML IV (14:21)
[2024-03-08] MEDS: SODIUM BICARBONATE 150 MEQ in DEXTROSE 5 % IN WATER 1,000 ML 50 MEQ IV (14:26)
[2024-03-08] MEDS: HEPARIN SODIUM 5,000 UNIT/ML VIAL 3500 UNIT IV (14:55)
[2024-03-08] MEDS: HEPARIN SODIUM,PORCINE/D5W 500 ML 14 UNIT IV (14:57)
[2024-03-08 15:30] LABS: Anion Gap 21.8 mEq/L (5-15); Blood Urea Nitrogen 69 mg/dl (9-20); Calcium 8.7 mg/dl (8.4-10.2); Carbon Dioxide 12 mmol/L (22.0-30.0); Chloride 111 mmol/L (98-107); Creatinine Clearance Estimated 15 mL/min (50-200); Estimated Glomerular Filt Rate 16 ml/min (>60); GFR (African American) 20 ML/MIN (>60); Glucose 130 mg/dl (74-100); Potassium 4.8 mmoL/L (3.5-5.1); Sodium 140 mmol/L (136-145)
[2024-03-08 15:40] LABS: Reflex Lactic Add Lactic Reflex
[2024-03-08 16:45] LABS: Lactic Acid Follow Up (RFLX 1) 2.6 mmol/L (0.7-2.1)
--- NOTE | 2024-03-08 17:22 | EXP.ACUTE.PN ---
Subjective *Date: 03/08/24 *Time: 18:44 Interval history: Patient confused today. Family at bedside throughout the day. Remains hemodynamically stable on room air. Still appears critically ill however. Urine output slowly improving as the day has progressed. Urine is practice or student teacher in color. Will open his eyes spontaneously, occasionally will answer appropriately to questions but not consistently. Medical Exam Vital signs and Labs for Last 24 Hours: Vital Signs Temp Pulse Pulse Resp BP Pulse Ox O2 Del Method 03/08/24 16:00 82 15 124/79 99 Room Air 03/08/24 15:51 Room Air 03/08/24 15:00 Room Air 03/08/24 14:00 83 15 113/68 94 L Room Air 03/08/24 13:00 Room Air 03/08/24 12:19 90 03/08/24 12:00 97 F L 03/08/24 11:00 Room Air 03/08/24 10:00 83 15 111/68 96 Room Air 03/08/24 08:47 Room Air 03/08/24 08:00 85 03/08/24 08:00 97.2 F L 03/08/24 08:00 Room Air 03/08/24 08:00 97.2 F L 86 19 103/53 L 96 Room Air 03/08/24 07:00 Room Air 03/08/24 06:00 84 18 99/42 L Room Air 03/08/24 05:00 Room Air 03/08/24 04:00 97.2 F L 03/08/24 04:00 99 Room Air 03/08/24 04:00 97.9 F 03/08/24 04:00 85 03/08/24 04:00 85 25 H 91/54 L 92 L Room Air 03/08/24 03:00 Room Air 03/08/24 02:00 92 H 27 H 84/57 L 100 Room Air 03/08/24 01:00 Room Air 03/08/24 00:00 101 H 03/08/24 00:00 103 H 11 L 113/83 100 Room Air 03/07/24 23:00 Room Air 03/07/24 22:00 94 H 22 103/63 L Room Air 03/07/24 21:00 Room Air 03/07/24 20:04 90 03/07/24 20:00 99.0 F 03/07/24 20:00 99 Room Air 03/07/24 20:00 122 H 24 106/59 L 100 Room Air 03/07/24 18:37 Room Air 03/07/24 18:00 99.1 F 118 H 10 L 103/57 L Room Air O2 Flow Rate 03/08/24 16:00 03/08/24 15:51 03/08/24 15:00 03/08/24 14:00 03/08/24 13:00 03/08/24 12:19 03/08/24 12:00 03/08/24 11:00 03/08/24 10:00 03/08/24 08:47 03/08/24 08:00 03/08/24 08:00 03/08/24 08:00 03/08/24 08:00 03/08/24 07:00 03/08/24 06:00 03/08/24 05:00 03/08/24 04:00 03/08/24 04:00 03/08/24 04:00 03/08/24 04:00 03/08/24 04:00 03/08/24 03:00 03/08/24 02:00 03/08/24 01:00 03/08/24 00:00 03/08/24 00:00 03/07/24 23:00 95 03/07/24 22:00 03/07/24 21:00 03/07/24 20:04 03/07/24 20:00 03/07/24 20:00 03/07/24 20:00 03/07/24 18:37 03/07/24 18:00 Intake and Output 03/08/24 03/08/24 03/08/24 07:59 15:59 23:59 Intake Total 1029 / 1689 660 / 1689 Output Total 20 / 150 130 / 150 Balance 1009 / 1539 530 / 1539 Intake: Intake, Oral Amount 60 / 60 Intake, Total IV Amount 1029 / 1629 600 / 1629 Cefepime HCl 1 gm In 0.9 % 50 / 50 Sodium Chloride 50 ml @ 100 mls /hr IV Q12H [facility] Rx#:[id number] Mvi, Adult No.1 with Vit K 10 1029 / 1579 550 / 1579 ml Thiamine HCl 100 mg Magnesium Sulfate 2 gm In Lactated Ringers 1000ML 1,000 ml @ 250 mls/hr IV DAILY [facility] Rx #:[id number] Output: Output, Urine Amount 0 / 0 Output, Urine Amount (Catheter) 20 150 130 / 150 Juarez 20 150 130 / 150 Other: Number of Voids 0 Number of Unmeasured Voids 0 0 Weight 58.27 kg 58.3 kg Patient Weight 03/08/24 23:59 Weight 58.3 kg Laboratory Results - last 24 hr 03/07/24 17:55: Sodium 140, Potassium 4.6, Chloride 110 H, Carbon Dioxide 13 L, Anion Gap 21.6 H, BUN 64 H, Creatinine 3.30 H D, Estimated Creat Clear 17, Estimated GFR 19 L*, Est GFR ( Amer) 22 L D, Glucose 126 H D, Calcium 8.4 03/08/24 06:00: VBG pH 7.22 L, VBG pCO2 43.7, VBG pO2 58.4 H, VBG HCO3 17.4 L, VBG Total CO2 18.7 L, VBG O2 Saturation 83.6 H, VBG Base Excess -10.3 L, VBG Lactic Acid 2.8 H 03/08/24 08:50: ESR 80 H, Sodium 140, Potassium 4.7, Chloride 111 H, Carbon Dioxide 16 L, Anion Gap 17.7 H, BUN 67 H, Creatinine 3.60 H, Estimated Creat Clear 15, Estimated GFR 17 L*, Est GFR ( Amer) 20 L, Glucose 122 H, Calcium 8.5, Phosphorus 5.9 H D, Magnesium 3.1 H D, Total Bilirubin 0.9, AST 76 H D, ALT 11 L, Alkaline Phosphatase 64, Troponin I 3.07 H, C-Reactive Protein 309.7 H, Total Protein 5.6 L, Albumin 2.6 L, Globulin 3.0, Albumin/Globulin Ratio 0.9 L, Procalcitonin 5.63 H 03/08/24 12:45: APTT 41.0 L 03/08/24 15:10: Sodium 140, Potassium 4.8, Chloride 111 H, Carbon Dioxide 12 L, Anion Gap 21.8 H, BUN 69 H, Creatinine 3.70 H, Estimated Creat Clear 15, Estimated GFR 16 L*, Est GFR ( Amer) 20 L, Glucose 130 H, Calcium 8.7 11/11/24 15:53: Lactate 2.6 H I & O for Labs for Last 24 Hours: Intake & Output 03/05/24 03/06/24 03/07/24 03/08/24 23:59 23:59 23:59 23:59 Intake Total 475 / 1012 1689 / 1689 Output Total 140 / 140 150 / 150 Balance 335 / 872 1539 / 1539 Weight 61.292 kg 58.27 kg 58.3 kg Microbiology Reports for the Last 24 Hours: Microbiology 03/06/24 22:45 Blood Blood Culture - Preliminary NO GROWTH AFTER 24 HOURS 03/06/24 22:10 Blood Blood Culture - Preliminary NO GROWTH AFTER 24 HOURS Constitutional: Present mild distress, cachectic and chronically ill appearing Head: Present atraumatic ENT: Present mucous membranes dry Comment:: Edentulous Neck: Present normal inspection Respiratory: Present accessory muscle use, prolonged expiratory phase, rhonchi, crackles (Predominantly in right lung field) and diminished air movement (In right lung field); Absent wheezes Comment:: Inspiratory squeak occasionally in left side Cardiac: Present Irregularly Regular and Tachycardia GI: Present soft and normal bowel sounds; Absent distention or tenderness Comment:: Juarez in place, draining yellow urine Extremities: Present normal inspection and full ROM; Absent tenderness or edema Comment:: Thin Skin: Present intact; Absent erythema Comment:: Cyanosis of fingertips and toes Neuro: Present Grossly Intact, alert, awake and moves all extremities Comment:: Oriented to self, difficult to assess orientation to place and situation. Assessment and Plan *Assessment and plan (1) Septic shock: Status: Acute Category: Medical Code(s): A41.9 - Sepsis, unspecified organism; R65.21 - Severe sepsis with septic shock (2) Acute hypoxemic respiratory failure: Status: Acute Category: Medical Code(s): J96.01 - Acute respiratory failure with hypoxia (3) Pneumonia: Status: Acute Qualifiers: Laterality: right Lung location: unspecified part of lung Pneumonia type: due to unspecified organism Qualified Code(s): J18.9 - Pneumonia, unspecified organism Category: Medical Code(s): J18.9 - Pneumonia, unspecified organism (4) NSTEMI (non-ST elevated myocardial infarction): Status: Acute Category: Medical Code(s): I21.4 - Non-ST elevation (NSTEMI) myocardial infarction (5) JULIA (acute kidney injury): Status: Acute Category: Medical Code(s): N17.9 - Acute kidney failure, unspecified (6) Cavitating mass of lung: Status: Acute Category: Medical Code(s): J98.4 - Other disorders of lung (7) Severe protein-calorie malnutrition: Status: Acute Category: Medical Code(s): E43 - Unspecified severe protein-calorie malnutrition (8) Tobacco use disorder: Status: Acute Category: Medical Code(s): F17.200 - Nicotine dependence, unspecified, uncomplicated Plan 73-year-old male who presented with septic shock secondary to pneumonia with acute hypoxemic respiratory failure and metabolic acidosis. Discussed case with pulmonology and cardiology today. After extensive discussion with both services, concerned that patient has component of heart failure that is suspected to be acute with his ACS and elevated right-sided heart pressures based on echo showing elevated RVSP. Concern however that he is also not volume overloaded based on his lack of pulmonary edema, stability on room air, and improving urine output after fluid resuscitation. After much discussion with family, we will proceed with conservative management. Holding on diuretics at this time. Family would like to hold on invasive procedure of right heart cath and reevaluate in the morning. Will initiate heparin drip for acute coronary syndrome and elevation in troponin which elevated to 3 today. Inflammatory markers severely elevated with CRP of 309, ESR 80, Pro-Fabricio 5.6. -CBC and BMP ordered for this afternoon to monitor kidney function and white count along with electrolytes Kidney function remains grossly abnormal, BUN 67, creatinine 3.6. Have added CK to labs from the afternoon to evaluate for rhabdomyolysis in the setting of septic shock. PT and OT consulted to assist with therapy. Gentle fluids with bicarb drip at 50 cc an hour. Holding on further boluses for now, will maintain MAP greater than 65. Low threshold to initiate norepinephrine if MAP consistently below 60-65 -Repeat CBC, CMP, magnesium ordered for the morning along with CRP, ESR, Pro-Fabricio -Quant Farren gold pending Continue broad-spectrum antibiotics with vancomycin and cefepime, cefepime 1 g every 12 hours renally dosed. Continue vitamin supplementation with oral folic acid, thiamine, multivitamin. Goals of care discussion with family today, given patient's decline over the past year, severity of illness, potential for meaningful recovery, would like to continue medical management at this time but if patient decompensates, heart interested in keeping patient comfortable. Recommend further goals of care discussions daily. ICU/Critical care attestation This patient is critically ill with 35 minutes devoted solely to this patient managing life/organ supporting interventions that required physician assessment. This includes time spent making adjustments in respiratory support, IV fluid administration, consideration of/titration of pressors, adjustments of medications, discussion of patient with consultants and other care providers as well as updating patient and/or family (if patient by virtue of his/her condition is unable to participate in decision making). This does not include time spent performing separately billed procedures. Time is not concurrent with that of other providers.
--- NOTE | 2024-03-08 17:23 | EXP.EVENT.NO ---
Advance care planning note: Active diagnosis: Septic shock, pneumonia, ACS, cavitary lung lesion, acute renal failure, tobacco use disorder, he, weight loss, cachexia The patient's active diagnoses are of sufficient risk that focused discussion on advanced care planning is indicated in order to allow the patient to thoughtfully consider personal goals of care; and, if situations arise that prevent the ability to personally give input, to ensure appropriate representation of their personal desires through documentation or informed surrogate decision makers. Discussion: Persons present and participating in discussion: Patient present but not interactive with discussion, daughter Macy, myself Discussion: Extensive discussion about patient's presentation, lack of medical care over the past many years, progressive decline over the past several years. Discussed his presentation with acute coronary syndrome, acute renal failure, septic shock, pneumonia. Discussed if family would like to proceed with invasive testing such as right heart cath to evaluate heart function and if they would like to proceed with intubation if patient declines. Patient's daughter clear that they have had discussions and they do not want to resuscitate the patient. He would not want to be on a ventilator. Has expressed that before to them. They also do not want to proceed with invasive testing at this time just given his tenuous status. Would like to continue conservative medical management. Reevaluate in the morning. States understanding of his multiorgan dysfunction with renal failure, CHF, respiratory failure and sepsis. Time spent: Total time spent [id number] in education and discussion directly related to advance care plannin minutes
[2024-03-08] MEDS: ONDANSETRON 4MG/2ML VIAL 4 MG IV (17:36)
[2024-03-08 17:58] LABS: Reflex Lactic (2 hrs) Add Lactic Reflex
[2024-03-08] MEDS: IPRATROPIUM/ALBUTEROL 3 ML NEB IH ×2 (18:17→23:56)
[2024-03-08 19:38] LABS: Lactic Acid Follow up (RFLX 2) 2.6 mmol/L (0.7-2.1)
[2024-03-08 20:43] LABS: Blood Urea Nitrogen 72 mg/dl (9-20); Calcium 8.5 mg/dl (8.4-10.2); Carbon Dioxide 19 mmol/L (22.0-30.0); Chloride 109 mmol/L (98-107); Creatinine Clearance Estimated 14 mL/min (50-200); Estimated Glomerular Filt Rate 15 ml/min (>60); GFR (African American) 18 ML/MIN (>60); Glucose 159 mg/dl (74-100); Sodium 141 mmol/L (136-145)
[2024-03-08 21:07] LABS: Basophils # 0.1 K/mm3 (0-0.2); Basophils % 0.7 % (0.1-2.0); Eosinophils # 0.1 K/mm3 (0.0-0.4); Eosinophils % 0.4 % (0.1-12.0); Hematocrit 32.8 % (42.0-52.0); Hemoglobin 10.2 g/dL (14.1-18.0); Lymphocytes # 0.8 K/mm3 (0.7-4.5); Lymphocytes % 4.4 % (10-50); Mean Corpuscular HGB Conc 31.1 g/dL (31.8-35.4); Mean Corpuscular Hemoglobin 29.2 pg (27.0-31.2); Mean Corpuscular Volume 93.9 fl (80-94); Mean Platelet Volume 9.8 fl (7.4-10.4); Monocytes # 0.6 K/mm3 (0.1-1.0); Monocytes % 3.4 % (1.7-9.3); Neutrophils # 16.3 K/mm3 (1.8-7.8); Neutrophils % 91.1 % (37.0-80.0); Platelet Count 124 K/mm3 (142-424); Red Blood Count 3.49 M/mm3 (4.60-6.20); Red Cell Distribution Width 14.8 % (11.5-17.5); White Blood Count 17.9 K/mm3 (4.8-10.8)
[2024-03-08 21:17] LABS: MANUAL DIFFERENTIAL MANUAL DIFFERENTIAL (MANUAL DIFF)
[2024-03-08 21:51] LABS: Lymphocytes % 5 % (10-50); Monocytes % 1 % (2-9); Neutrophils % 93 % (42-76); Total Cells Counted 100
[2024-03-08 21:52] LABS: Eosinophils % 1 % (0-3); Hypochromasia 1+; Platelet Estimate Normal; RBC Morphology Normal
[2024-03-08 21:56] LABS: PTT Heparin (inpatient only) 81.3 Seconds (50-75)
[2024-03-08 22:04] LABS: NT Pro Brain Natriuretic Pep. 148000 pg/mL (0-125)
[2024-03-08] MEDS: HEPARIN SODIUM,PORCINE/D5W 500 ML 13 UNIT IV (22:12)
[2024-03-08 22:22] LABS: Creatine Kinase 990 U/L (55-170)
[2024-03-09] VITALS (18 sets, daily range): BP systolic 90–123; BP diastolic 46–76; PULSE 90–121; RESP 10–35; TEMP 36–36.5; O2SAT 93–100; BMI 19.5
[2024-03-09] MEDS: VANCOMYCIN HCL 1,000 MG in 0.9 % SODIUM CHLORIDE 250 ML 125 MG IV (01:16)
[2024-03-09] MEDS: CEFEPIME HCL 1 GM in 0.9 % SODIUM CHLORIDE 50 ML IV ×2 (02:45→17:09)
[2024-03-09 03:46] LABS: Peripheral Smear Review Scanned Result
[2024-03-09 04:21] LABS: Basophils # 0.2 K/mm3 (0-0.2); Eosinophils % 0.2 % (0.1-12.0); Hemoglobin 10.4 g/dL (14.1-18.0); Lymphocytes # 0.8 K/mm3 (0.7-4.5); Lymphocytes % 4.6 % (10-50); Mean Corpuscular HGB Conc 30.7 g/dL (31.8-35.4); Mean Corpuscular Hemoglobin 28.6 pg (27.0-31.2); Mean Corpuscular Volume 93.3 fl (80-94); Monocytes # 0.5 K/mm3 (0.1-1.0); Neutrophils # 16.3 K/mm3 (1.8-7.8); Neutrophils % 91.2 % (37.0-80.0); Platelet Count 127 K/mm3 (142-424); Red Blood Count 3.64 M/mm3 (4.60-6.20); Red Cell Distribution Width 14.8 % (11.5-17.5); White Blood Count 17.9 K/mm3 (4.8-10.8)
[2024-03-09 04:26] LABS: Chol/HDL Ratio 2.4 (1-3.5); Cholesterol 92 mg/dl (140-200); HDL Cholesterol 39 mg/dl (40-60); Triglycerides 129 mg/dl (30-150); VLDL Cholesterol 26 mg/dL (0-40)
[2024-03-09 04:27] LABS: Alanine Aminotransferase 40 U/L (12-78); Albumin Level 2.7 g/dl (3.5-5.0); Albumin/Globulin Ratio 0.8 (1.1-1.8); Alkaline Phosphatase 75 U/L (38-126); Anion Gap 17.5 mEq/L (5-15); Aspartate Amino Transferase 420 U/L (17-59); Bilirubin,Total 1.1 mg/dl (0.2-1.3); Blood Urea Nitrogen 75 mg/dl (9-20); Calcium 8.3 mg/dl (8.4-10.2); Carbon Dioxide 22 mmol/L (22.0-30.0); Chloride 107 mmol/L (98-107); Creatinine Clearance Estimated 13 mL/min (50-200); Estimated Glomerular Filt Rate 14 ml/min (>60); GFR (African American) 17 ML/MIN (>60); Globulin 3.3 g/dL (1.3-3.2); Glucose 149 mg/dl (74-100); Potassium 5.5 mmoL/L (3.5-5.1); Sodium 141 mmol/L (136-145)
[2024-03-09 04:28] LABS: PTT Heparin (inpatient only) 58.5 Seconds (50-75)
[2024-03-09 04:37] LABS: C-Reactive Protein 267.8 mg/L (0-4)
[2024-03-09 04:48] LABS: Erythrocyte Sedimentation Rate 73 mm/hr (0-20)
--- NOTE | 2024-03-09 05:00 | PC.NURSE ---
Spoke with Dr. Acuna to report patient critical lab values, and patient current presentation. Informed that patient is only responsive at this time to repositioning or painful stimuli. Patient does not open eyes, or verbalize anymore. Mottling present to earlobes, fingers, and feet. BLE and BUE cold to touch. DR. Acuna informed that he will be contacting family to inform of patient continued decline.
[2024-03-09 05:57] LABS: Procalcitonin 4.91 ng/mL (0.0-2.0)
[2024-03-09] MEDS: MORPHINE 2MG/ML SYRINGE 2 MG IV (08:13)
--- NOTE | 2024-03-09 09:37 | P.PN_ITS ---
Subjective *Date: 03/09/24 *Time: 09:37 Pulmonology Exam Inpatient Vital signs and Labs for Last 24 Hours: Temp Pulse Resp BP Pulse Ox O2 Del Method O2 Flow Rate 97.2 F L 101 H 12 105/67 L 96 Nasal Cannula 2 03/09/24 08:00 03/09/24 08:00 03/09/24 08:00 03/09/24 08:00 03/09/24 08:00 03/09/24 08:56 03/09/24 08:56 FiO2 100 03/06/24 23:54 Laboratory Results - last 24 hr 03/08/24 06:00: VBG pH 7.22 L, VBG pCO2 43.7, VBG pO2 58.4 H, VBG HCO3 17.4 L, VBG Total CO2 18.7 L, VBG O2 Saturation 83.6 H, VBG Base Excess -10.3 L, VBG Lactic Acid 2.8 H 03/08/24 08:50: ESR 80 H 03/08/24 12:45: APTT 41.0 L 03/08/24 15:10: Sodium 140, Potassium 4.8, Chloride 111 H, Carbon Dioxide 12 L, Anion Gap 21.8 H, BUN 69 H, Creatinine 3.70 H, Estimated Creat Clear 15, Estimated GFR 16 L*, Est GFR ( Amer) 20 L, Glucose 130 H, Calcium 8.7, Total Creatine Kinase 990 H* 03/08/24 15:53: Lactate 2.6 H 03/08/24 18:13: Lactate 2.6 H 03/08/24 20:05: Sodium 141, Potassium 5.0, Chloride 109 H, Carbon Dioxide 19 L, Anion Gap 18.0 H, BUN 72 H, Creatinine 3.90 H, Estimated Creat Clear 14, Estimated GFR 15 L*, Est GFR ( Amer) 18 L*, Glucose 159 H D, Calcium 8.5, NT-Pro-B Natriuret Pep 851961 H 03/08/24 20:57: WBC 17.9 H D, RBC 3.49 L, Hgb 10.2 L, Hct 32.8 L, MCV 93.9, MCH 29.2, MCHC 31.1 L, RDW 14.8, Plt Count 124 L D, MPV 9.8, Neut % (Auto) 91.1 H, Lymph % (Auto) 4.4 L, Callahan % (Auto) 3.4, Eos % (Auto) 0.4, Baso % (Auto) 0.7, Neut # (Auto) 16.3 H, Lymph # (Auto) 0.8, Callahan # (Auto) 0.6, Eos # (Auto) 0.1, Baso # (Auto) 0.1, Total Counted 100, Neutrophils % (Manual) 93 H, Lymphocytes % (Manual) 5 L, Monocytes % (Manual) 1 L, Eosinophils % (Manual) 1, Platelet Estim ate Normal, RBC Morphology Normal, Hypochromasia 1+, APTT 81.3 H* 03/09/24 04:05: WBC 17.9 H, RBC 3.64 L, Hgb 10.4 L, Hct 34.0 L, MCV 93.3, MCH 28.6, MCHC 30.7 L, RDW 14.8, Plt Count 127 L, MPV 10.0, Neut % (Auto) 91.2 H, Lymph % (Auto) 4.6 L, Callahan % (Auto) 3.0, Eos % (Auto) 0.2, Baso % (Auto) 1.0, Neut # (Auto) 16.3 H, Lymph # (Auto) 0.8, Callahan # (Auto) 0.5, Eos # (Auto) 0.0, Baso # (Auto) 0.2, ESR 73 H, APTT 58.5, Sodium 141, Potassium 5.5 H, Chloride 107, Carbon Dioxide 22, Anion Gap 17.5 H, BUN 75 H, Creatinine 4.20 H, Estimated Creat Clear 13, Estimated GFR 14 L*, Est GFR ( Amer) 17 L*, Glucose 149 H , Calcium 8.3 L, Total Bilirubin 1.1, AST 420 H* D, ALT 40 D, Alkaline Phos phatase 75, C-Reactive Protein 267.8 H, Total Protein 6.0 L, Albumin 2.7 L, Globulin 3.3 H, Albumin/Globulin Ratio 0.8 L, Triglycerides 129, Cholesterol 92 L, LDL Cholesterol Direct 30.50 L, VLDL Cholesterol 26, HDL Cholesterol 39 L, Cholesterol/HDL Ratio 2.4, Procalcitonin 4.91 H I & O for Labs for Last 24 Hours: Intake & Output 03/06/24 03/07/24 03/08/24 03/09/24 23:59 23:59 23:59 23:59 Intake Total 475 / 1012 2148 / 2148 742 / 742 Output Total 140 / 140 175 / 175 Balance 335 / 872 1972 732 / 732 Weight 135 lb 2 oz 128 lb 7.414 oz 128 lb 8.472 oz 128 lb 8.472 oz Microbiology Reports for the Last 24 Hours: Microbiology 03/07/24 09:20 Nose MRSA Culture - Final Negative 03/06/24 22:15 Urine,Catheterized Urine Culture - Final No growth. 03/06/24 22:45 Blood Blood Culture - Preliminary NO GROWTH AFTER 48 HOURS 03/06/24 22:10 Blood Blood Culture - Preliminary NO GROWTH AFTER 48 HOURS Assessment and Plan *Assessment and plan (1) Pneumonia: Status: Acute Qualifiers: Laterality: right Lung location: unspecified part of lung Pneumonia type: due to unspecified organism Qualified Code(s): J18.9 - Pneumonia, unspecified organism Category: Medical Code(s): J18.9 - Pneumonia, unspecified organism (2) Pulmonary emphysema: Status: Acute Qualifiers: Emphysema type: unspecified Qualified Code(s): J43.9 - Emphysema, unspecified Category: Medical Code(s): J43.9 - Emphysema, unspecified Plan Much of the history is obtained from chart review. Patient not responding appropriately to verbal commands. Mr. Gonzalez is a 73-year-old presented to the ER after he was found unconscious. Patient admission noted to be hypoxic and hypothermic. Significant weight loss of around 100 pounds in the last [address] on admission prominent right upper lobe cavitary/necrotizing pneumonia along with right lower lobe pneumonia. Blood gas upon admission likely combination of mixed metabolic and respiratory acidosis. BUN/creatinine abnormal, no baseline. GFR <20. Patient upon admission was initiated on vancomycin and Zosyn. Blood cultures no growth 24 hours. Patient on examination not responding to verbal commands. Bilateral rhonchi mild expiratory wheezing noted. Saturating 100% on room air. Refusing treatments and sputum induction. Awaiting family discussion for goals of care. Interval update: Acute respiratory vents overnight. Continue to receive vancomycin and cefepime. Worsening leukocytosis. Oliguric JULIA. Net positive volume status. Plan: Continue vancomycin and cefepime renally dosed pending culture results. DuoNebs every 6 hours on a scheduled basis Follow-up TB QuantiFERON Sputum induction followed by cultures # Thank you for involving pulmonary in this patient care. Will continue to follow.
--- NOTE | 2024-03-09 11:37 | SW/DCPLANNER ---
Addendum entered by Ramila Storey 03/10/24 13:19: A.D. w/ Hospice was at bedside to evaluate patient and admit inpatient Hospice services. Per patient's family they would like to remain comfort care w/ [facility] and declined Hospice services at this time. Addendum entered by Ramila Storey 03/10/24 11:55: Per patient/family they would like to withdrawal care and have Hospice services involved. I have updated Drea w/ Hospice. Addendum entered by Ramila Storey 03/09/24 14:15: Per Cardiology: Hospice consult is on hold at this time. AD w/ Hospice did come to [facility] and spoke w/ family at bedside today incase if needed in near future. I will continue to follow up w/ patient, family, MD and Hospice services. Original Note: I received a Hospice consult for this patient. I spoke w/ patient's family members regarding comfort care and consulting w/ Hospice services. Patient's family is agreeable to Hospice to evaluate patient today. Patient information will be faxed to Hospice this AM. I will follow up w/ Drea at Hospice once information is reviewed.
--- NOTE | 2024-03-09 12:58 | P.PN_ITS ---
Subjective Subjective Date: 03/09/24 Time: 12:15 Principal diagnosis: HFrEF Interval history: This is a 73-year-old gentleman who is admitted to the hospital after being found unconscious by his family at home. The patient has an ejection fraction of 30% and has acute HFrEF. The patient also has sepsis from cavitary pneumonia. The patient had an elevated troponin as well as an elevated renal function. Due to his acute HFrEF cardiology did want to diurese the patient yesterday. However, there was concern that the patient may have been dehydrated from his sepsis and pneumonia. Right cardiac catheterization was then recommended, however the patient's family declined. IV fluids were stopped and no diuresis were initiated yesterday. His renal function has worsened today and his mentation has worsened as well. During the night last night his family decided to make him comfort measures only as the patient did not want to seek any medical treatment prior to coming into the hospital. This morning the patient is unresponsive and not following any commands. His vital signs are stable and appears to be in no distress. Exam Data for Last 24 hours Vital signs and Labs for Last 24 Hours: Temp Pulse Resp BP Pulse Ox O2 Del Method O2 Flow Rate 97.2 F L 98 H 14 123/64 100 Nasal Cannula 2 03/09/24 08:00 03/09/24 10:00 03/09/24 10:00 03/09/24 10:00 03/09/24 10:00 03/09/24 11:00 03/09/24 11:00 FiO2 100 03/06/24 23:54 Laboratory Results - last 24 hr 03/08/24 12:45: APTT 41.0 L 03/08/24 15:10: Sodium 140, Potassium 4.8, Chloride 111 H, Carbon Dioxide 12 L, Anion Gap 21.8 H, BUN 69 H, Creatinine 3.70 H, Estimated Creat Clear 15, Estimated GFR 16 L*, Est GFR ( Amer) 20 L, Glucose 130 H, Calcium 8.7, Total Creatine Kinase 990 H* 03/08/24 15:53: Lactate 2.6 H 03/08/24 18:13: Lactate 2.6 H 03/08/24 20:05: Sodium 141, Potassium 5.0, Chloride 109 H, Carbon Dioxide 19 L, Anion Gap 18.0 H, BUN 72 H, Creatinine 3.90 H, Estimated Creat Clear 14, Estimated GFR 15 L*, Est GFR ( Amer) 18 L*, Glucose 159 H D, Calcium 8.5, NT-Pro-B Natriuret Pep [id number] H 03/08/24 20:57: WBC 17.9 H D, RBC 3.49 L, Hgb 10.2 L, Hct 32.8 L, MCV 93.9, MCH 29.2, MCHC 31.1 L, RDW 14.8, Plt Count 124 L D, MPV 9.8, Neut % (Auto) 91.1 H, Lymph % (Auto) 4.4 L, [place] % (Auto) 3.4, Eos % (Auto) 0.4, Baso % (Auto) 0.7, Neut # (Auto) 16.3 H, Lymph # (Auto) 0.8, [place] # (Auto) 0.6, Eos # (Auto) 0.1, Baso # (Auto) 0.1, Total Counted 100, Neutrophils % (Manual) 93 H, Lymphocytes % (Manual) 5 L, Monocytes % (Manual) 1 L, Eosinophils % (Manual) 1, Platelet Estimate Normal, RBC Morphology Normal, Hypochromasia 1+, APTT 81.3 H* 03/09/24 04:05: WBC 17.9 H, RBC 3.64 L, Hgb 10.4 L, Hct 34.0 L, MCV 93.3, MCH 28.6, MCHC 30.7 L, RDW 14.8, Plt Count 127 L, MPV 10.0, Neut % (Auto) 91.2 H, Lymph % (Auto) 4.6 L, [place] % (Auto) 3.0, Eos % (Auto) 0.2, Baso % (Auto) 1.0, Neut # (Auto) 16.3 H, Lymph # (Auto) 0.8, [place] # (Auto) 0.5, Eos # (Auto) 0.0, Baso # (Auto) 0.2, ESR 73 H, APTT 58.5, Sodium 141, Potassium 5.5 H, Chloride 107, Carbon Dioxide 22, Anion Gap 17.5 H, BUN 75 H, Creatinine 4.20 H, Estimated Creat Clear 13, Estimated GFR 14 L*, Est GFR ( Amer) 17 L*, Glucose 149 H , Calcium 8.3 L, Total Bilirubin 1.1, AST 420 H* D, ALT 40 D, Alkaline Phosphatase 75, C-Reactive Protein 267.8 H, Total Protein 6.0 L, Albumin 2.7 L, Globulin 3.3 H, Albumin/Globulin Ratio 0.8 L, Triglycerides 129, Cholesterol 92 L, LDL Cholesterol Direct 30.50 L, VLDL Cholesterol 26, HDL Cholesterol 39 L, Cholesterol/HDL Ratio 2.4, Procalcitonin 4.91 H I & O for Last 24 hours: Intake & Output 03/06/24 03/07/24 03/08/24 03/09/24 23:59 23:59 23:59 23:59 Intake Total 475 / 1012 2148 / 2148 742 / 742 Output Total 140 / 140 175 / 175 Balance 335 / 872 1972 732 / 732 Weight 135 lb 2 oz 128 lb 7.414 oz 128 lb 8.472 oz 128 lb 8.472 oz Microbiology Reports for the Last 24 Hours: Microbiology 03/07/24 09:20 Nose MRSA Culture - Final Negative 03/06/24 22:15 Urine,Catheterized Urine Culture - Final No growth. 03/06/24 22:45 Blood Blood Culture - Preliminary NO GROWTH AFTER 48 HOURS 03/06/24 22:10 Blood Blood Culture - Preliminary NO GROWTH AFTER 48 HOURS Constitutional Constitutional: no acute distress and thin *Routine HEENT Exam Head: Present normocephalic and atraumatic ENT: Present mucous membranes moist *Routine Neck Exam Neck: Present supple and normal carotid upstroke; Absent JVD, carotid bruit or lymphadenopathy *Routine Respiratory Exam Respiratory: Present rales, rhonchi, wheezes, normal respiratory effort and symmetric chest movement *Routine Cardiovascular Exam Cardiovascular: Present RRR, Normal S1 and Normal S2; Absent murmur or gallop *Routine Abdominal Exam Abdominal: Present soft and normoactive bowel sounds; Absent organomegaly *Routine Extremities Exam Extremities: Present normal capillary refill; Absent cyanosis, clubbing or edema *Routine Skin Exam Skin: Present intact and warm; Absent erythema *Routine Neurological Exam Neurological: Present altered mental status Routine Psychiatric Exam Psychiatric: Present unable to assess Progress Note: A&P Assessment and plan (1) Acute HFrEF (heart failure with reduced ejection fraction): Status: Acute (2) Ischemic cardiomyopathy: Status: Acute (3) NSTEMI (non-ST elevated myocardial infarction): Status: Acute (4) Acute coronary syndrome: Status: Acute (5) Pneumonia: Status: Acute (6) JULIA (acute kidney injury): Status: Acute (7) Pulmonary emphysema: Status: Acute (8) Abnormal electrocardiogram [ECG] [EKG]: Status: Acute (9) Tobacco use disorder: Status: Acute (10) Severe protein-calorie malnutrition: Status: Acute (11) Septic shock: Status: Acute (12) Cavitating mass of lung: Status: Acute Assessment and Plan Assessment and Plan for All Diagnoses:: Plan: 1. The patient was admitted to the hospital after being found to have a right upper lobe cavitary pneumonia and right lower lobe pneumonia. There is concern that he may have a cavitary lung mass. The patient was getting IV antibiotics and a QuantiFERON is currently pending. All of his IV antibiotics were stopped this morning when the patient's family decided to make him comfort measures only because they are concerned that the patient has lung cancer and he would not wa nt to proceed with any treatment for that. However, lung cancer has not been confirmed. 2. Cardiology did recommend IV diuretics yesterday due to his acute HFrEF, BNP of the 174,000 and an ejection fraction at 30%. The diuretics were never started because there was concern that the patient may have been dehydrated due to his renal function from the sepsis and pneumonia. At that point right car diac catheterization was recommended but the family declined. 3. IV fluids and diuretics were both held yesterday and his creatinine has worsened to 4.2 today. He now appears to be in cardiogenic shock and milrinone was recommended early this morning as well and the patient's family declined. 4. Dr. Quijano has had a long discussion with the patient's family today about his current prognosis and treatment. They were offered medication treatment for the presumed cardiogenic shock as he has not been treated for the heart failure/cardiogenic shock up until this point. The family has decided to p roceed with medications to see if he has any improvement in his cardiac standpoint. They still want the patient to remain a DNR and DNI. 5. Will start a dobutamine drip at 5 mcg for the HFrEF. 6. Will give Bumex 2 mg IV x 1 dose now followed by a Bumex drip at 1 mg an hour for HFrEF. 7. Restart IV antibiotics for the pneumonia. 8. The heparin drip was stopped overnight because the patient's family wanted him to be comfort care only. Will continue to hold heparin drip for now. 9. His blood pressure is currently stable. 10. His LDL goal is less than 55. His LDL is 30. 11. Repeat a CBC, BMP, liver panel and lactic acid in the morning. 12. Continue with hospice consult as previously ordered. 13. Further recommendations will be made pending the patient's response to treatment. Thank you for the opportunity to help her to spend the care of this patient. All recommendations and orders are per Dr. Jaime.
[2024-03-09] MEDS: DOBUTAMINE HCL/D5W 250 ML 8.75 MG IV (14:08)
[2024-03-09] MEDS: BUMETANIDE 1MG/4ML VIAL 2 MG IV (14:09)
[2024-03-09] MEDS: BUMETANIDE 10 MG in 0.9 % SODIUM CHLORIDE 60 ML IV ×2 (14:09→23:11)
--- NOTE | 2024-03-09 16:36 | EXP.PN ---
Subjective *Date: 03/09/24 *Time: 16:36 Interval history: Patient is not responsive to sternal rub, does not withdraw to pain stimulus. Exam Data for Last 24 hours Vital signs and Labs for Last 24 Hours: Temp Pulse Resp BP Pulse Ox O2 Del Method O2 Flow Rate 97.2 F L 96 H 18 118/46 L 99 Nasal Cannula 2 03/09/24 08:00 03/09/24 16:00 03/09/24 16:00 03/09/24 16:00 03/09/24 16:00 03/09/24 16:00 03/09/24 16:00 FiO2 100 03/06/24 23:54 Laboratory Results - last 24 hr 03/08/24 15:10: Total Creatine Kinase 990 H* 03/08/24 15:53: Lactate 2.6 H 03/08/24 18:13: Lactate 2.6 H 03/08/24 20:05: Sodium 141, Potassium 5.0, Chloride 109 H, Carbon Dioxide 19 L, Anion Gap 18.0 H, BUN 72 H, Creatinine 3.90 H, Estimated Creat Clear 14, Estimated GFR 15 L*, Est GFR ( Amer) 18 L*, Glucose 159 H D, Calcium 8.5, NT-Pro-B Natriuret Pep [id number] H 03/08/24 20:57: WBC 17.9 H D, RBC 3.49 L, Hgb 10.2 L, Hct 32.8 L, MCV 93.9, MCH 29.2, MCHC 31.1 L, RDW 14.8, Plt Count 124 L D, MPV 9.8, Neut % (Auto) 91.1 H, Lymph % (Auto) 4.4 L, [place] % (Auto) 3.4, Eos % (Auto) 0.4, Baso % (Auto) 0.7, Neut # (Auto) 16.3 H, Lymph # (Auto) 0.8, [place] # (Auto) 0.6, Eos # (Auto) 0.1, Baso # (Auto) 0.1, Total Counted 100, Neutrophils % (Manual) 93 H, Lymphocytes % (Manual) 5 L, Monocytes % (Manual) 1 L, Eosinophils % (Manual) 1, Platelet Estimate Normal, RBC Morphology Normal, Hypochromasia 1+, APTT 81.3 H* 03/09/24 04:05: WBC 17.9 H, RBC 3.64 L, Hgb 10.4 L, Hct 34.0 L, MCV 93.3, MCH 28.6, MCHC 30.7 L, RDW 14.8, Plt Count 127 L, MPV 10.0, Neut % (Auto) 91.2 H, Lymph % (Auto) 4.6 L, [place] % (Auto) 3.0, Eos % (Auto) 0.2, Baso % (Auto) 1.0, Neut # (Auto) 16.3 H, Lymph # (Auto) 0.8, [place] # (Auto) 0.5, Eos # (Auto) 0.0, Baso # (Auto) 0.2, ESR 73 H, APTT 58.5, Sodium 141, Potassium 5.5 H, Chloride 107, Carbon Dioxide 22, Anion Gap 17.5 H, BUN 75 H, Creatinine 4.20 H, Estimated Creat Clear 13, Estimated GFR 14 L*, Est GFR ( Amer) 17 L*, Glucose 149 H, Calcium 8.3 L, Total Bilirubin 1.1, AST 420 H* D, ALT 40 D, Alkaline Phosphatase 75, C-Reactive Protein 267.8 H, Total Protein 6.0 L, Albumin 2.7 L, Globulin 3.3 H, Albumin/Globulin Ratio 0.8 L, Triglycerides 129, Cholesterol 92 L, LDL Cholesterol Direct 30.50 L, VLDL Cholesterol 26, HDL Cholesterol 39 L, Cholesterol/HDL Ratio 2.4, Procalcitonin 4.91 H I & O for Last 24 hours: Intake & Output 03/06/24 03/07/24 03/08/24 03/09/24 23:59 23:59 23:59 23:59 Intake Total 475 / 1012 2148 / 2148 742 / 742 Output Total 140 / 140 175 / 175 Balance 335 / 872 1972 / 1972 732 / 732 Weight 61.292 kg 58.27 kg 58.3 kg 58.3 kg Microbiology Reports for the Last 24 Hours: Microbiology 03/07/24 09:20 Nose MRSA Culture - Final Negative 03/06/24 22:15 Urine,Catheterized Urine Culture - Final No growth. 03/06/24 22:45 Blood Blood Culture - Preliminary NO GROWTH AFTER 48 HOURS 03/06/24 22:10 Blood Blood Culture - Preliminary NO GROWTH AFTER 48 HOURS Constitutional Constitutional: no acute distress and thin *Routine HEENT Exam Head: Present normocephalic and atraumatic ENT: Present mucous membranes moist *Routine Neck Exam Neck: Present supple and normal carotid upstroke; Absent JVD, carotid bruit or lymphadenopathy *Routine Respiratory Exam Respiratory: Present rales, rhonchi, wheezes, normal respiratory effort and symmetric chest movement *Routine Cardiovascular Exam Cardiovascular: Present RRR, Normal S1 and Normal S2; Absent murmur or gallop *Routine Abdominal Exam Abdominal: Present soft and normoactive bowel sounds; Absent organomegaly *Routine Extremities Exam Extremities: Present normal capillary refill; Absent cyanosis, clubbing or edema *Routine Skin Exam Skin: Present intact and warm; Absent erythema *Routine Neurological Exam Neurological: Present altered mental status Routine Psychiatric Exam Psychiatric: Present unable to assess Assessment and Plan *Assessment and plan (1) Septic shock: Status: Acute Category: Medical Code(s): A41.9 - Sepsis, unspecified organism; R65.21 - Severe sepsis with septic shock (2) Acute hypoxemic respiratory failure: Status: Acute Category: Medical Code(s): J96.01 - Acute respiratory failure with hypoxia (3) Pneumonia: Status: Acute Qualifiers: Laterality: right Lung location: unspecified part of lung Pneumonia type: due to unspecified organism Qualified Code(s): J18.9 - Pneumonia, unspecified organism Category: Medical Code(s): J18.9 - Pneumonia, unspecified organism (4) NSTEMI (non-ST elevated myocardial infarction): Status: Acute Category: Medical Code(s): I21.4 - Non-ST elevation (NSTEMI) myocardial infarction (5) JULIA (acute kidney injury): Status: Acute Category: Medical Code(s): N17.9 - Acute kidney failure, unspecified (6) Cavitating mass of lung: Status: Acute Category: Medical Code(s): J98.4 - Other disorders of lung (7) Severe protein-calorie malnutrition: Status: Acute Category: Medical Code(s): E43 - Unspecified severe protein-calorie malnutrition (8) Tobacco use disorder: Status: Acute Category: Medical Code(s): F17.200 - Nicotine dependence, unspecified, uncomplicated Plan 73-year-old male who presented with septic shock secondary to pneumonia with acute hypoxemic respiratory failure and metabolic acidosis. Discussed case with pulmonology and cardiology today. After extensive discussion with both services, concerned that patient has component of heart failure that is suspected to be acute with his ACS and elevated right-sided heart pressures based on echo showing elevated RVSP. Concern however that he is also not volume overloaded based on his lack of pulmonary edema, stability on room air, and improving urine output after fluid resuscitation. After much discussion with family, we will proceed with conservative management. Holding on diuretics at this time. Family would like to hold on invasive procedure of right heart cath and reevaluate in the morning. Will initiate heparin drip for acute coronary syndrome and elevation in troponin which elevated to 3 today. Inflammatory markers severely elevated with CRP of 309, ESR 80, Pro-Fabricio 5.6. -CBC and BMP ordered for this afternoon to monitor kidney function and white count along with electrolytes #Cardiogenic shock #Community-acquired pneumonia #Right upper lobe spiculated mass versus cavitation #JULIA on CKD stage IV #Hepatic failure, congestive hepatopathy #NSTEMI likely type II ? Overnight, renal and hepatic function worsened. He had signs of hypoperfusion with mottled skin, minimal arousal spinal rub. Vital signs stable, however. ? Given his progression, I called daughter and son to discuss goals of care at 5 AM. Upon arrival, I had an extensive conversation with daughter regarding prognosis but that we can definitely try to treat likely cardiogenic shock with milrinone. However, decided to make patient comfort care and withdraw all treatment. This was initiated around 6 AM. ? Cardiology also had the same discussion with patient this morning, and after a family discussion decision was made to treat cardiogenic shock and pneumonia at this time to see how patient responds over the next 24 to 48 hours. ? Cardiology recommended dobutamine drip and IV Bumex drip. Will hold off on heparin drip for now. ? Started dobutamine drip at 5 mcg. Can be uptitrated depending on response. ? Started IV Bumex drip. Follow urine output, renal function, electrolytes. ? Continue vancomycin, cefepime. ? Pulmonology consulted, assisting with care. Follow-up TB QuantiFERON, sputum cultures. DuoNebs every 6 hours. ? Creatinine worsened to 4.2 today. AST/ALT 420/40 respectively. Continue to follow as dobutamine has been started. ICU/Critical care attestation This patient is critically ill with 35 minutes devoted solely to this patient managing life/organ supporting interventions that required physician assessment. This includes time spent making adjustments in respiratory support, IV fluid administration, consideration of/titration of pressors, adjustments of medications, discussion of patient with consultants and other care providers as well as updating patient and/or family (if patient by virtue of his/her condition is unable to participate in decision making). This does not include time spent performing separately billed procedures. Time is not concurrent with that of other providers.
--- NOTE | 2024-03-09 22:29 | PC.NURSE ---
During patient assessment TRN palpated patient pelvic area to assess possible urinary retention due to anuria, to which patient grimaced, and moaned in pain. Patient was bladder scanned showing 0ml of urine present in bladder, no intervention at this time. Pt repositioned to comfort before exiting room.
--- NOTE | 2024-03-09 22:45 | EXP.EVENT.NO ---
Patient had episode of drop in blood pressure after being rolled/repositioned. Became hypotensive with systolics in the 60s. Monitored blood pressure over the next 10 minutes, had improvement to systolics in the 80s to 90s. Patient with minimal response to sternal rub on exam. [place] catheter evaluated, less than 10 cc in U[place]arez bag at that time. Patient does not appear to be having significant clinical response to Bumex or dobutamine. He is essentially anuric at this time. Discussed with family at bedside my concerns that patient is in multiorgan failure. Will continue to monitor overnight. If develops recurrent hypotensive events will consider small volume of fluids versus additional pressors.
--- NOTE | 2024-03-09 23:25 | PC.NURSE ---
Patient refuses to be repositioned to supine of left side lying. Patient asked if he would like to be repositioned to another position to which he refuses. Pillows placed on all pressure areas, and behind back. Pt currently positioned to right sideling, to which it seems patient prefers this position. Does not appear to be in any discomfort, and when pt asked if he is in pain and RN offers pain medications patient shakes head no that he is not in any pain, and refuses pain medication. Family at bedside and present for interaction, and aware of why patient is not repositioned at this time.
[2024-03-10] VITALS (18 sets, daily range): BP systolic 61–106; BP diastolic 28–64; PULSE 100–120; RESP 15–26; TEMP 36.5–37.7; O2SAT 96–100
[2024-03-10] MEDS: CEFEPIME HCL 1 GM in 0.9 % SODIUM CHLORIDE 50 ML IV (03:40)
[2024-03-10] MEDS: MORPHINE 2MG/ML SYRINGE 2 MG IV ×3 (05:59→13:36)
[2024-03-10 07:11] LABS: Basophils # 0.2 K/mm3 (0-0.2); Basophils % 1.1 % (0.1-2.0); Eosinophils % 0.1 % (0.1-12.0); Hematocrit 30.1 % (42.0-52.0); Hemoglobin 9.2 g/dL (14.1-18.0); Lymphocytes # 0.7 K/mm3 (0.7-4.5); Lymphocytes % 3.4 % (10-50); Mean Corpuscular HGB Conc 30.6 g/dL (31.8-35.4); Mean Corpuscular Hemoglobin 28.9 pg (27.0-31.2); Mean Corpuscular Volume 94.5 fl (80-94); Mean Platelet Volume 10.7 fl (7.4-10.4); Monocytes # 0.7 K/mm3 (0.1-1.0); Monocytes % 3.1 % (1.7-9.3); Neutrophils # 19.3 K/mm3 (1.8-7.8); Neutrophils % 92.3 % (37.0-80.0); Red Blood Count 3.18 M/mm3 (4.60-6.20); Red Cell Distribution Width 15.2 % (11.5-17.5); White Blood Count 20.9 K/mm3 (4.8-10.8)
[2024-03-10 07:19] LABS: Platelet Count 46 K/mm3 (142-424)
[2024-03-10 07:20] LABS: MANUAL DIFFERENTIAL MANUAL DIFFERENTIAL (MANUAL DIFF)
[2024-03-10 07:26] LABS: Anisocytosis 1+; Corrected White Blood Count 19.7 K/mm3 (4.8-10.8); Hypochromasia 1+; Lymphocytes % 5 % (10-50); Monocytes % 2 % (2-9); Neutrophils % 93 % (42-76); Nucleated Red Blood Cells 6; Total Cells Counted 100
[2024-03-10 07:27] LABS: Platelet Estimate Marked Decrease
[2024-03-10 07:28] LABS: Albumin Level 2.3 g/dl (3.5-5.0); Alkaline Phosphatase 107 U/L (38-126); Aspartate Amino Transferase 529 U/L (17-59); Bilirubin,Indirect 0.2 mg/dL (0.0-0.9); Bilirubin,Total 1.2 mg/dl (0.2-1.3); Bilirubin,Unconjugated 0.2 mg/dL (0.0-1.1); Lactic Acid 1.7 mmol/L (0.7-2.1); Total Protein,Serum 5.2 g/dl (6.3-8.2)
[2024-03-10 07:44] LABS: Alanine Aminotransferase 67 U/L (12-78)
[2024-03-10 07:54] LABS: QuantiFERON-TB Gold Plus Negative (Negative)
[2024-03-10 08:42] LABS: Alanine Aminotransferase 68 U/L (12-78); Albumin Level 2.3 g/dl (3.5-5.0); Albumin/Globulin Ratio 0.8 (1.1-1.8); Alkaline Phosphatase 109 U/L (38-126); Anion Gap 21.6 mEq/L (5-15); Aspartate Amino Transferase 540 U/L (17-59); Bilirubin,Total 1.2 mg/dl (0.2-1.3); Calcium 7.8 mg/dl (8.4-10.2); Carbon Dioxide 13 mmol/L (22.0-30.0); Chloride 112 mmol/L (98-107); Creatinine Clearance Estimated 12 mL/min (50-200); Estimated Glomerular Filt Rate 12 ml/min (>60); GFR (African American) 14 ML/MIN (>60); Glucose 77 mg/dl (74-100); Potassium 5.6 mmoL/L (3.5-5.1); Sodium 141 mmol/L (136-145); Total Protein,Serum 5.3 g/dl (6.3-8.2)
[2024-03-10 08:43] LABS: Blood Urea Nitrogen 86 mg/dl (9-20)
[2024-03-10] MEDS: BUMETANIDE 10 MG in 0.9 % SODIUM CHLORIDE 60 ML IV (10:36)
[2024-03-10] MEDS: NICOTINE 21MG/24HR PATCH 21 MG TD (10:36)
[2024-03-10] MEDS: MEROPENEM 0.5 GM in 0.9 % SODIUM CHLORIDE 100 ML IV (10:46)
--- NOTE | 2024-03-10 11:08 | P.PN_ITS ---
Subjective *Date: 03/10/24 *Time: 11:08 Interval history: Worsening respiratory status no needing oxygen supplementation at 1 to 2 L. Pulmonology Exam Inpatient Vital signs and Labs for Last 24 Hours: Temp Pulse Resp BP Pulse Ox O2 Del Method O2 Flow Rate 99.3 F 104 H 20 81/44 L 97 Nasal Cannula 2 03/10/24 09:00 03/10/24 10:08 03/10/24 10:08 03/10/24 10:08 03/10/24 10:08 03/10/24 10:08 03/10/24 10:08 FiO2 100 03/06/24 23:54 Laboratory Results - last 24 hr 03/07/24 17:55: TB Test (QFT) Nil 0.04, TB Test (QFT) Mitogen 1.19, TB Test (QFT) Ag 1 0.02, TB Test (QFT) Ag 2 0.02, TB Positive Criteria Comment, TB Test (QFT) Interp Negative 03/10/24 05:23: WBC 20.9 H*, Corrected WBC 19.7 H, RBC 3.18 L, Hgb 9.2 L, Hct 30.1 L, MCV 94.5 H, MCH 28.9, MCHC 30.6 L, RDW 15.2, Plt Count 46 L* D, MPV 10.7 H, Neut % (Auto) 92.3 H, Lymph % (Auto) 3.4 L, Saunders % (Auto) 3.1, Eos % (Auto) 0.1, Baso % (Auto) 1.1, Neut # (Auto) 19.3 H, Lymph # (Auto) 0.7, Saunders # (Auto) 0.7, Eos # (Auto) 0.0, Baso # (Auto) 0.2, Total Counted 100, Neutrophils % (Manual) 93 H, Lymphocytes % (Manual) 5 L, Monocytes % (Manual) 2, Nucleated RBCs 6, Platelet Estimate Marked decrease, Hypochromasia 1+, Anisocytosis 1+, Sodium 141, Potassium 5.6 H, Chloride 112 H, Carbon Dioxide 13 L, Anion Gap 21.6 H, BUN 86 H, Creatinine 4.90 H, Estimated Creat Clear 12, Estimated GFR 12 L*, Est GFR ( Amer) 14 L*, Glucose 77, Lactate 1.7, Calcium 7.8 L, Total Bilirubin 1.2 03/10/24 05:23: Total Bilirubin 1.2, Direct Bilirubin 1.0 H, Conjugated Bilirub in 0.0, Indirect Bilirubin 0.2, Unconjugated Bilirubin 0.2, AST 529 H* D 03/10/24 05:23: AST 540 H*, ALT 67 D 03/10/24 05:23: ALT 68, Alkaline Phosphatase 107 03/10/24 05:23: Alkaline Phosphatase 109, Total Protein 5.2 L 03/10/24 05:23: Total Protein 5.3 L, Albumin 2.3 L D 03/10/24 05:23: Albumin 2.3 L, Globulin 3.0, Albumin/Globulin Ratio 0.8 L Temp Pulse Resp BP Pulse Ox O2 Del Method O2 Flow Rate 97.2 F L 86 19 103/53 L 96 Room Air 95 03/08/24 08:00 03/08/24 08:00 03/08/24 08:00 03/08/24 08:00 03/08/24 08:00 03/08/24 08:47 03/07/24 23:00 FiO2 100 03/06/24 23:54 Laboratory Results - last 24 hr 03/07/24 08:46: Procalcitonin 3.75 H 03/07/24 17:55: Sodium 140, Potassium 4.6, Chloride 110 H, Carbon Dioxide 13 L, Anion Gap 21.6 H, BUN 64 H, Creatinine 3.30 H D, Estimated Creat Clear 17, Estimated GFR 19 L*, Est GFR ( Amer) 22 L D, Glucose 126 H D, Calcium 8.4 03/08/24 08:50: ESR 80 H, Sodium 140, Potassium 4.7, Chloride 111 H, Carbon Dioxide 16 L, Anion Gap 17.7 H, BUN 67 H, Creatinine 3.60 H, Estimated Creat Clear 15, Estimated GFR 17 L*, Est GFR ( Amer) 20 L, Glucose 122 H, Calcium 8.5, Phosphorus 5.9 H D, Magnesium 3.1 H D, Total Bilirubin 0.9, AST 76 H D, ALT 11 L, Alkaline Phosphatase 64, Troponin I 3.07 H, C-Reactive Protein 309.7 H, Total Protein 5.6 L, Albumin 2.6 L, Globulin 3.0, Albumin/Globulin Ratio 0.9 L, Procalcitonin 5.63 H I & O for Labs for Last 24 Hours: Intake & Output 03/07/24 03/08/24 03/09/24 03/10/24 23:59 23:59 23:59 23:59 Intake Total 475 / 1012 2148 / 2148 832.333 / 832.333 100 / 100 Output Total 140 / 140 175 / 175 130 / 140 Balance 335 / 872 1972 702.333 / 692.333 90 / 90 Weight 128 lb 7.414 oz 128 lb 8.472 oz 128 lb 8.472 oz 132 lb 4.438 oz Intake & Output 03/05/24 03/06/24 03/07/24 03/08/24 23:59 23:59 23:59 23:59 Intake Total 475 / 1012 1029 / 1029 Output Total 140 / 140 Balance 335 / 872 1009 / 1009 Weight 135 lb 2 oz 128 lb 7.414 oz 128 lb 7.414 oz Microbiology Reports for the Last 24 Hours: Microbiology 03/07/24 09:20 Nose MRSA Culture - Final Negative 03/06/24 22:15 Urine,Catheterized Urine Culture - Final No growth. Microbiology 03/06/24 22:45 Blood Blood Culture - Preliminary NO GROWTH AFTER 24 HOURS 03/06/24 22:10 Blood Blood Culture - Preliminary NO GROWTH AFTER 24 HOURS Constitutional: Present severe distress Head: Present normocephalic and atraumatic ENT: Present normal exam, normal oropharynx and mucous membranes moist Neck: Present normal inspection and full ROM Respiratory: Present prolonged expiratory phase, rhonchi, wheezes and diminished air movement; Absent able to speak in complete sentences Cardiac: Present S1/S2, Tachycardia and radial pulses present GI: Present soft and distention; Absent tenderness or guarding Skin: Present intact; Absent cyanosis or jaundice Neuro: Absent alert, awake or oriented x 3 Extremities: Present normal inspection; Absent clubbing or cyanosis Psychiatric: Present normal affect and cooperative Assessment and Plan *Assessment and plan (1) Pneumonia: Status: Acute Qualifiers: Laterality: right Lung location: unspecified part of lung Pneumonia type: due to unspecified organism Qualified Code(s): J18.9 - Pneumonia, unspecified organism Category: Medical Code(s): J18.9 - Pneumonia, unspecified organism (2) Pulmonary emphysema: Status: Acute Qualifiers: Emphysema type: unspecified Qualified Code(s): J43.9 - Emphysema, unspecified Category: Medical Code(s): J43.9 - Emphysema, unspecified Plan Much of the history is obtained from chart review. Patient not responding appropriately to verbal commands. Mr. Gonzalez is a 73-year-old presented to the ER after he was found unconscious. Patient admission noted to be hypoxic and hypothermic. Significant weight loss of around 100 pounds in the last [address] on admission prominent right upper lobe cavitary/necrotizing pneumonia along with right lower lobe pneumonia. Blood gas upon admission likely combination of mixed metabolic and respiratory acidosis. BUN/creatinine abnormal, no baseline. GFR <20. Patient upon admission was initiated on vancomycin and Zosyn. Blood cultures no growth 24 hours. Patient on examination not responding to verbal commands. Bilateral rhonchi mild expiratory wheezing noted. Saturating 100% on room air. Refusing treatments and sputum induction. Awaiting family discussion for goals of care. Interval update: Patient is not comfort care at this point of time. Cardiology following for c ardiogenic shock. Afebrile. Hemodynamically unstable. Worsening leukocytosis. Slight worsening oxygen requirements now needing 1 to 2 L to maintain O2 saturation goal of 95%. Nasal MRSA PCR negative. Antibiotics were changed to meropenem for the noted necrotizing pneumonia. On dobutamine and Bumex drip for cardiogenic shock. Oliguric JULIA continued to worsen. Heparin drip was discontinued. TB QuantiFERON negative. Unable to obtain sputum samples for cultures. Blood and urine cultures no growth so far. Net +3 L fluid status so far since admission. Family do not want pursue interventions including bronchoscopy at this point of time. Plan: Continue meropenem renally dosed Given worsening leukocytosis and shock will consider adding micafungin pending goals of care discussions with the family. Continue oxygen supplementation to maintain O2 saturation goal of 92% and above DuoNebs every 6 hours on a scheduled basis Sputum induction followed by cultures # Thank you for involving pulmonary in this patient care. Will continue to follow.
--- NOTE | 2024-03-10 11:10 | PC.NURSE ---
RESP CARE NOTE: Spoke with pts daughter at bedside, regarding givning patient a neb tx. She expressed she would rather not disturb patient with the treatments, but states she will call out if she feels like he is uncomfortable or having difficulty with breathing. We will continue to monitor patient and check with family for any change in patient status.
--- NOTE | 2024-03-10 11:56 | PC.NURSE ---
1140: more of pt family arrived at bedside. pt daughter, son and ex stated to this RN that they wished to have all of the medications stopped at this time and for the pt to be kept comfortable. [address] Acuna of family wishes (md had prior discussion with family). per md, stop drips and transition to comfort care. change morphine to 2mg q1hp. 1155: drips stopped at this time. discussed with family if they wished to have Hospice in to discuss the care they provide. family is agreeable at this time. notified Ramila in Social work. 1158: notified Cecy in cardiology that per md care is being withdrawn and pt is changing to comfort care. 1200: notified Dr Watts that care is being withdrawn and pt is transitioning to comfort care.
--- NOTE | 2024-03-10 14:06 | EXP.DEATH.DS ---
Discharge Sum: Prov Provider Primary care physician: Referral ProviderMD Visit Care Team Role Provider Type Referral Provider, Primary Care Provider Referring Valeriy Jaime MD Other Providers Staff Physician Minoo Watts MD Other Providers Staff Physician Anastacio Aranda MD Other Providers Consulting Physician Peng Mina MD Other Providers Staff Physician CONCEPCION Kline Other Providers Physician Hand Cutter Apprentice Zac Dash MD Other Providers Consulting Physician Sohan Jeong MD Other Providers Consulting Physician CONCEPCION Aceves Other Providers Physician Hand Cutter Apprentice Roque Gaines MD Other Providers Staff Physician Tali Donnelly, RYAN Other Providers Nurse Practitioner Cecy Moran APRN Other Providers Nurse Practitioner Mehul Lutz MD Emergency Provider ER Physician Uriel Aquino MD Admit Provider Staff Physician Attending Provider Consults: 03/07/24 01:44 Consult to Case Management [CONS] Routine Reason For Consult: Xars-hpsg-ive gentleman that did not want to come to the hospital. Once was nonresponsive family called ambulance and brought him here, he really does not want to remain here and wants to be a DNI. Family is not in a position of being accepting of his condition at this time. Patient was alert and oriented while we were talking to him in the emergency room Consider criminal justice social worker consult and or hospice consult 03/07/24 08:13 Pulmonology Consult [Consult to Pulmonology] [CONS] Routine Consulting Provider: Minoo Watts Reason For Consult: Cavitary pneumonia versus cancer. Presented with septic shock with acute hypoxemic respiratory failure. 03/08/24 07:00 Cardiology Consult [Consult to Cardiology] [CONS] Routine Consulting Provider: Cardiology Reason For Consult: NSTEMI 03/09/24 10:42 Consult to Hospice [CONS] Routine Comment: decompensation Consulting Provider: Discharge Sum: Diag Contributing Factors (1) Pneumonia: (2) Pulmonary emphysema: Discharge Sum: Summary Date and Time Date of admission: 03/07/24 01:14 Date of : 03/10/24 Time of : 13:30 Hospital Course prior to Hospital Course Information: 73-year-old male who presented with septic shock secondary to pneumonia with acute hypoxemic respiratory failure and metabolic acidosis. Discussed case with pulmonology and cardiology today. After extensive discussion with both services, concerned that patient has component of heart failure that is suspected to be acute with his ACS and elevated right-sided heart pressures based on echo showing elevated RVSP. Concern however that he is also not volume overloaded based on his lack of pulmonary edema, stability on room air, and improving urine output after fluid resuscitation. After much discussion with family, we will proceed with conservative management. Holding on diuretics at this time. Family would like to hold on invasive procedure of right heart cath and reevaluate in the morning. Will initiate heparin drip for acute coronary syndrome and elevation in troponin which elevated to 3 today. Inflammatory markers severely elevated with CRP of 309, ESR 80, Pro-Fabricio 5.6. -CBC and BMP ordered for this afternoon to monitor kidney function and white count along with electrolytes #Cardiogenic shock #Community-acquired pneumonia #Right upper lobe spiculated mass versus cavitation #JULIA on CKD stage IV #Hepatic failure, congestive hepatopathy #NSTEMI likely type II ? Overnight, renal and hepatic function worsened. He had signs of hypoperfusion with mottled skin, minimal arousal spinal rub. Vital signs stable, however. ? Given his progression, I called daughter and son to discuss goals of care at 5 AM. Upon arrival, I had an extensive conversation with daughter regarding prognosis but that we can definitely try to treat likely cardiogenic shock with milrinone. However, decided to make patient comfort care and withdraw all treatment. This was initiated around 6 AM. ? Cardiology also had the same discussion with patient this morning, and after a family discussion decision was made to treat cardiogenic shock and pneumonia at this time to see how patient responds over the next 24 to 48 hours. ? Cardiology recommended dobutamine drip and IV Bumex drip. Will hold off on heparin drip for now. ? Started dobutamine drip at 5 mcg. Can be uptitrated depending on response. ? Started IV Bumex drip. Follow urine output, renal function, electrolytes. ? Continue vancomycin, cefepime. ? Pulmonology consulted, assisting with care. Follow-up TB QuantiFERON, sputum cultures. DuoNebs every 6 hours. ?WBC worsened to 20.9, creatinine worsened to 4.9 today. AST/ALT 540/40 respectively. ?After another conversation with the family the morning, they have decided to make patient comfort care as treatment with dobutamine has not yielded positive results. Summary Details: 1140: more of pt family arrived at bedside. pt daughter, son and ex stated to this RN that they wished to have all of the medications stopped at this time and for the pt to be kept comfortable. [address] Acuna of family wishes (md had prior discussion with family). per md, stop drips and transition to comfort care. change morphine to 2mg q1hp. 1155: drips stopped at this time. discussed with family if they wished to have Hospice in to discuss the care they provide. family is agreeable at this time. notified Ramila in Social work. 1158: notified Cecy in cardiology that per care is being withdrawn and pt is changing to comfort care. 1200: notified Dr Watts that care is being withdrawn and pt is transitioning to comfort care. At approximately 1:30 PM on 03/10/2024, patient . Additional Data Confirmation of as documented by pronouncing clinician: no pulse, no respirations, no heart sounds and pupils fixed and dilated Family: at bedside Additional persons at bedside: other Attending/PCP notified?: Yes Attending physician: Mateo Acuna MD Was code activated?: No Autopsy requested?: No license examiner notified?: Yes Organ bank notified?: No
== END 2024-03-10 14:02 | disposition expired | DRG 871 ==
LOC: ER 23:09 → 2ND 03-07 01:15
PROVIDERS: Emergency Medicine; Internal Medicine; Nurse Practitioner; Nurse Practitioner Family; Student in an Organized Health Care Education/Training Program; Admitting Provider Internal Medicine Adolescent Medicine; Emergency Provider Emergency Medicine; Visit Provider Internal Medicine Adolescent Medicine
DX: A41.9 Sepsis, unspecified organism (principal); E43 Unspecified severe protein-calorie malnutrition; J96.01 Acute respiratory failure with hypoxia; R65.21 Severe sepsis with septic shock; J18.9 Pneumonia, unspecified organism; I50.21 Acute systolic (congestive) heart failure; I21.A1 Myocardial infarction type 2; N17.9 Acute kidney failure, unspecified; E46 Unspecified protein-calorie malnutrition; Z68.20 Body mass index [BMI] 20.0-20.9, adult; Z51.5 Encounter for palliative care; J43.9 Emphysema, unspecified; I25.5 Ischemic cardiomyopathy; Z71.6 Tobacco abuse counseling; R91.8 Other nonspecific abnormal finding of lung field; K72.90 Hepatic failure, unspecified without coma; R68.0 Hypothermia, not associated with low environmental temperature; F17.210 Nicotine dependence, cigarettes, uncomplicated
CPT/HCPCS: 36415; 70450; 71045; 71260; 74177; 80048; 80053; 80061; 80076; 81001; 82550; 82803; 83605; 83735; 83880; 84100; 84145; 84484; 85007; 85025; 85610; 85651; 85730; 86140; 86480; 87040; 87081; 87086; 93005; 93306; 93308; 94640; 94761; 97163; 97165; 97530; 99291; J0295; J0692; J1250; J1644; J1650; J1939; J2060; J2185; J2270; J2405; J2543; J2919; J3370; J3411; J7030; J7050; J7060; J7120; J7620; Q9967